=== PATIENT | female | born 1970 | race Caucasian/White ===

== ENCOUNTER 2018-02-24 09:20 | Day surgery (SDC) | payer OTHER ==
[~2018-02-24 09:20] MED LIST: CEFAZOLIN/SWI 2gm 2 GM/20 ML SYR IV SCH
--- OUTSIDE RECORDS SUMMARY | 2018-02-24 09:28 | XMS REPORT | Continuity of Care Document ---
:1970 Author Organization Interface Problems Problem Status Onset Classification Date Comments Source Date Reported Obesity Active Problem 09/13/2016 [facility] Medications Medication Details Route Status Patient Ordering Order Source Instructions Provider Date Allergies, Adverse Reactions, Alerts Substance Category Reaction Severity Reaction Status Date Comments Source type Reported NKDA Assertion Drug Active [facility] allergy [place] Immunizations Immunization Date Given Site Status Last Updated Comments Source Results Order Name Results Value Reference Date Interpretation Comments Source Range Spine Spine EXAM: XR CERVICAL SPINE 2 VIEWS 09/10 - [facility] OP[facility] cervical 2 cervical /2016 - [place] or 3 view 2 or 3 DX view DX DATE: 09/10/2016 12:25 PM CHART CLERK Read by: Aleksander Lee MD Dictated Date/time: 09/10/16 13:26 Electronically Signed by: Aleksander Lee MD 09/10/16 13:28 FINAL REPORT INDICATION: M47.12 Other spondylosis with myelopathy, cervical region COMPARISON: None TECHNIQUE: AP and lateral radiographs of the cervical spine show from the skull base through T1. DISCUSSION: Reversal of normal cervical lordosis with 10 degrees of focal kyphosis at C5-C6. Vertebral body heights are maintained. There is mild C5-C6 and moderate C6-C7 disc height loss. Large anterio r and small to moderate posterior vertebral body osteophytes at C5-C6 and C6-C7. Laminotomies have been performed on the right at C5, C6, and C7. The lateral mass screw at C5 is incompletely seated within the bone. IMPRESSION: 1. Laminotomies on the right at C5-C7. The C5 lateral mass screws incompletely seated within the bone. 2. Moderate degenerative disc disease at C5-C7 with 10 degrees focal kyphosis at C5-C6. Vital Signs Vital Sign Value Date Comments Source Encounters Location Location Encounter Encounter Reason Attending ADM DC Status Source Details Type Number For Provider Date Date Visit Outpatient [id number] [facility] 08/20 [facility] [place] Outpatient [id number] [facility] 09/10 [facility] [id number] 09/10 09/11 [facility]2016 [facility] [id number] [facility] 10/08 [facility] [place] [facility] Outpatient [id number] [facility] 12/03 [facility] [place] Out[place] [id number] [facility] 03/08 [facility] [place] Procedures Procedure Code Date Perfomer Comments Source Cervical [id number] 08/04/2016 [facility] laminoplasty with [place] decompression of spinal cord Tubal [id number] 2001 OP[facility] ligation<sup>1</sup [place] >
[2018-02-24] MEDS ORDERED: MIDAZOLAM HCL 2 MG/2 ML INJ ONE ×2 (09:32→09:34)
[2018-02-24] MEDS ORDERED: LIDOCAINE 2% MPF 5 ML VIAL ONE (09:34)
[2018-02-24] MEDS ORDERED: PROPOFOL 200 MG/20 ML VIAL IV ONE (09:34)
[2018-02-24] MEDS ORDERED: FENTANYL CITR 100 MCG/2 ML ONE (09:34)
[2018-02-24] MEDS ORDERED: ONDANSETRON HCL 40 MG/20 ML VIAL ONE (09:34)
[2018-02-24] MEDS ORDERED: Ringers Lactate 1,000 ML IV ONE (09:37)
[2018-02-24] MEDS ORDERED: KETOROLAC 30 MG/ML INJ ONE (10:32)
[2018-02-24] MEDS: MEPERIDINE HCL 50 MG/ML AMP ONE ×4 (10:46→11:15)
[2018-02-24] MEDS: MIDAZOLAM HCL 2 MG/2 ML INJ ONE ×2 (11:35→11:55)
[2018-02-24] MEDS ORDERED: MEPERIDINE HCL 25 MG/0.5 ML ONE ×2 (11:37→11:51)
[2018-02-24] MEDS ORDERED: HYDROCODONE/APAP 10/325 TAB ONE (11:52)
--- NOTE | 2018-02-24 20:43 | OP ---
Date of Procedure: 02/24/2018 Surgeon: Avani Smith MD Preoperative Diagnoses: Heavy menstrual bleeding (AUB-O). Postoperative Diagnoses: Heavy menstrual bleeding (AUB-O). Procedures Performed: Hysteroscopy, endometrial ablation with HTA. Anesthesia: General with LMA. Complications: None. Specimens: None. Drains: None. Condition: The patient is stable. Findings: Endometrial cavity was anteflexed, empty, and the ablation effect was excellent. Description Of Procedure: After informed consent was verified, patient was taken back to the OR, 2 g of Ancef were given. After general anesthesia was given, she was placed in a dorsal lithotomy posit ion using Mickey stirrups. Exam performed. Uterus anteflexed and slightly enlarged. Speculum placed to expose the cervix. Prep with Betadine x3. Anterior lip grasped with 2 Allis clamps, dilated to 12-Italian. Then primed HTA sheath with a diagnostic scope were introduced through the cervical canal , traversed through it into the uterine cavity under direct vision, placed in the mid cavity. The en tire cavity was surveyed. No intracavitary lesions. Endometrium appeared to be thin, likely from he r Provera. After a cavity integrity test was done, an anterior Allis clamp was hooked onto the HTA s yas, posterior fornix packed with 2 Ray-Tecs, and ablation cycle started. The heating cycle, 10 mi nute ablation cycle, and 1.5 minute cooling cycle overall, conducted without any problems or interrup tions. After the entire procedure was done, the scope was removed and diagnostic hysteroscopy was pe rformed with the same sheath to evacuate the ablation contents. There was an excellent ablation effe ct. The Ray-Tecs were removed and all instruments were removed, after the scope was removed. The pa tient instrument, needle, and sponge counts were correct at the end of the case. The patient tolerat ed the procedure well. She will follow up with me in 3 weeks. She was taken to the PACU in stable c ondition. BRIANNE/JOSE Voice ID: [id number] Report ID: [id number]
== END 2018-02-24 13:00 | disposition home or self-care (01) ==
LOC: OR 09:20
PROVIDERS: ATTEND Obstetrics & Gynecology
PROC: 0U5B8ZZ Destruction of Endometrium, Via Natural or Artificial Opening Endoscopic (ICD-10-PCS; principal; 2018-02-24 10:30)
DX: N92.0 Excessive and frequent menstruation with regular cycle (principal); F17.210 Nicotine dependence, cigarettes, uncomplicated; I10 Essential (primary) hypertension; N95.1 Menopausal and female climacteric states
CPT/HCPCS: 81025; J0690; J2175; J2250; J2405; J3010

== ENCOUNTER 2018-06-09 10:19 | Day surgery (SDC) | payer OTHER ==
[2018-06-06 14:53] LABS: Absolute Monocytes 0.6 K/uL (0.1-1.3); Absolute Neutrophil 5.2 K/uL (1.8-8.0); Basophils % 0.6 % (0-1.3); Eosinophils % 2.2 % (0-4.4); Hematocrit 43.2 % (36.0-45.0); Lymphocytes % 25.1 % (15.3-44.8); MCH 31.6 pg (27.0-35.0); MCV 92.2 fL (80-100); Monocytes % 7.5 % (3.3-12.3); RBC Red Blood Cell Count 4.68 M/uL (3.86-4.86)
[2018-06-06 17:09] LABS: Urine Appearance CLEAR; Urine Bilirubin NEGATIVE (NEG); Urine Blood NEGATIVE (NEG); Urine Color YELLOW; Urine Glucose TRACE (NEG); Urine Protein NEGATIVE (NEG); Urine Specific Gravity 1.015 (1.005-1.030); Urine Urobilinogen 0.2 mg/dL (0.2-1.0)
[2018-06-06 17:10] LABS: Urine Microscopic Reflex NO UMIC
--- OUTSIDE RECORDS SUMMARY | 2018-06-09 10:29 | XMS REPORT | Continuity of Care Document ---
:1970 Author Organization Interface Problems Problem Status Onset Classification Date Comments Source Date Reported Obesity Active Problem 09/13/2016 [facility] Medications Medication Details Route Status Patient Ordering Order Source Instructions Provider Date Allergies, Adverse Reactions, Alerts Substance Category Reaction Severity Reaction Status Date Comments Source type Reported Immunizations Immunization Date Given Site Status Last Updated Comments Source Results Order Name Results Value Reference Date Interpretation Comments Source Range Spine Spine EXAM: XR CERVICAL SPINE 2 VIEWS 09/10 - [facility] OPID cervical 2 cervical /2016 - [place] or 3 view 2 or 3 DX view DX DATE: 09/10/2016 12:25 PM IMAGE 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 Read by: Aleksander Lee MD Dictated Date/time: [...] Number For Provider Date Date Visit Outpatient [id number] [facility] 08/20 [facility] [place] Outpatient [id number] [facility] 09/10 [facility] Outpt Diag [id number] [facility] 09/10 09/11 OPID Outpatient Services [facility] /2016 [facility] Outpatient [id number] [facility] 10/08 [facility] [place] Outpatient [id number] [facility] 12/03 [facility] [place] Outpatient [id number] [facility] 03/08 [facility] Outpatient [id number] [facility] 08/02 [facility] Procedures Procedure Code Date Perfomer Comments Source Cervical [id number] 08/04/2016 OPID laminoplasty with [place] decompression of spinal cord Tubal [id number] 2001 OPID ligation<sup>1</sup [place] >
[2018-06-09] MEDS ORDERED: Ringers Lactate 1,000 ML IV ONE ×2 (10:41→12:47)
[2018-06-09] MEDS ORDERED: CEFAZOLIN/SWI 1gm 1 GM/10 ML SYR ONE (10:41)
[2018-06-09] MEDS ORDERED: SCOPOLAMINE HYDROBROMIDE PATCH TD ONE (11:02)
[2018-06-09] MEDS ORDERED: MIDAZOLAM HCL 2 MG/2 ML INJ ONE (11:35)
[2018-06-09] MEDS ORDERED: PROPOFOL 200 MG/20 ML VIAL IV ONE (11:36)
[2018-06-09] MEDS ORDERED: ROCURONIUM 50 MG/5 ML VIAL IV ONE ×2 (11:36→12:48)
[2018-06-09] MEDS ORDERED: DEXAMETHASONE 10 MG/ML VIAL ONE (11:37)
[2018-06-09] MEDS ORDERED: GLYCOPYRROLATE 0.2 MG/ML SYR ONE (11:37)
[2018-06-09] MEDS ORDERED: FENTANYL CITR 250 MCG/5 ML ONE (11:38)
[2018-06-09] MEDS ORDERED: NEOSTIGMINE 1 MG/ML -5 ML SYRINGE ONE (11:38)
[2018-06-09] MEDS ORDERED: LIDOCAINE 2% MPF 5 ML VIAL ONE (11:38)
[2018-06-09] MEDS ORDERED: ONDANSETRON HCL 40 MG/20 ML VIAL ONE ×2 (11:38→14:55)
[2018-06-09] MEDS: CEFAZOLIN/SWI 2gm 2 GM/20 ML SYR IV SCH ×2 (11:49→12:02)
[2018-06-09] MEDS ORDERED: NA CHLORIDE 0.9% 1,000 ML ONE ×2 (11:59→16:46)
[2018-06-09] MEDS ORDERED: EPHEDRINE SULF 50 MG/10 ML SYR ONE (12:29)
[2018-06-09] MEDS ORDERED: LABETALOL 20 MG/4ML SYRINGE IV ONE (13:22)
[2018-06-09] MEDS ORDERED: FENTANYL CITR 100 MCG/2 ML ONE (13:22)
[2018-06-09] MEDS ORDERED: KETOROLAC 30 MG/ML INJ ONE (13:51)
[2018-06-09] MEDS ORDERED: MORPHINE 10 MG/ML VIAL ONE (13:51)
[2018-06-09] MEDS ORDERED: MEPERIDINE HCL 25 MG/0.5 ML ONE (15:14)
[2018-06-09] MEDS: MEPERIDINE HCL 50 MG/ML AMP ONE ×2 (15:18→15:26)
[2018-06-09] MEDS ORDERED: HYDROCODONE/APAP 5/325 MG TAB ONE (18:08)
--- NOTE | 2018-06-10 08:16 | OP ---
Date of Procedure: 06/09/2018 Surgeon: Avani Smith MD Dry Folder Cloth: Yamilka Villafana. Preoperative Diagnoses: Menorrhagia, failed ablation. Postoperative Diagnoses: Menorrhagia, failed ablation, and omental and tubal adhesions to the sidewall . Procedures Performed: Total laparoscopic hysterectomy, bilateral salpingectomy, lysis of adhesions, cystoscopy. Anesthesia: General endotracheal. Estimated Blood Loss: 50. Specimens: Uterus, bilateral tubes. Complications: No complications. Drains: No none. Condition: The patient's condition is stable. Indications: The patient is a 47-year-old with heavy menstrual periods. She has had increasing heav y periods, 47 perimenopausal, so initially she had an endometrial biopsy that was without any endomet rial atypia or malignancy. After discussing about all the conservative treatment options including M steffi, ablation and Depo, she opted to have an ablation. After endometrial ablation was done, bleedi ng remained still uncontrolled, prolonged periods, without any changes. The patient wanted to procee d with definitive treatment. We discussed about the options of Depo and progesterone treatment. She has had progesterone in the past few weeks; however, she wants to have a hysterectomy thi s is a definitive treatment. Her FSH level was only 4.1, so plan was to proceed with hyst erectomy. Ovarian preservation was discussed since there was no pathology noted and no chronic pelvi c pain . We also discussed about tranexamic acid and she declined this contrain dicated . Description Of Procedure: After informed consent was verified, she was taken back to the OR. A 2 g of Ancef was given. She was placed in a supine fashion. General anesthesia was given. She was plac ed in a dorsal lithotomy position. Pelvic exam was performed. Uterus was found to be anteflexed wit hout adnexal masses, mobile, nontender. Abdomen, vulva, vagina, and perineum were prepped and draped in a sterile fashion. Dubon was placed to drain the bladder and attached LR bag for retr ograde filling, and this was left open to drain on the floor. A large VCare manipulator was introduc ed into the uterus without any problems and fixed in place. This area was then draped. A 1 cm infra umbilical incision was made with a scalpel. The fascia was exposed, incised, and tagged on both side s with 0 Vicryl sutures and peritoneum entered bluntly. S retractors placed. Karl introduced. Si te of entry was checked. There were omental adhesions in the pelvic cavity to the area of the left p roximal and distal tubes, to the large bowel, in the cul-de-sac, and left lateral wall. There were o varian adhesions to the lateral claudio, especially on the right ovary. Tubes were adherent to the bro ad ligament and to the large bowel. The patient was placed in Trendelenburg position. A 5 mm left lower quadrant and 10 mm suprapubic po rts were placed under direct vision and then a right lower quadrant incision was made for retraction of the bowel. Omentum was released first from all the underlying adhesions. There were taken down either sharply w ith scissors or with the bipolar cautery with the LigaSure and cutting. The omental adhesions were f geno up from the bowel as well as the left adnexa. Once this was reduced back in the upper abdominal cavity, the adhesions of the bowel were taken down on the left lower quadrant at the level of the pe lvic brim. These were sharply taken down. Able to visualize the tube. There was a distinct part of the tube that was adhered to the omentum and the epiploica that appeared to be from her tubal ligati on. However, this tube was completely and attached mostly to the omentum. This was picke d up and dissected out and cut and removed for specimen. Then, there was increased vascularity in th is area, and this was also resected. We went onto the pelvic washings. Once these were done and retrieved, then the anterior peritoneum w as surveyed. We went on to have a 5 mm LigaSure curved tip, and this was used to take down the left utero-ovarian ligament, mesosalpinx, round ligament, broad ligament opened up anteriorly to raise the bladder flap all the way to the opposite side and posteriorly the peritoneum taken down to the left uterosacral ligament. The vessels were skeletonized after taking down the broad ligament with the bi polar. On the opposite side, similar dissection was performed to take down the utero-ovarian, mesosa lpinx, round ligament, and the broad ligament taken down to connect the flap on the opposite side and the posterior broad ligament all the way to the right uterosacral was taken down. Then, the broad l igament was dissected carefully with push-spread technique, and using the bipolar LigaSure to isolate the vessels, the bladder flap was cleaned up by using the monopolar to cauterize the loose areolar t issue in front of the anterior vaginal wall. Once the vesicovaginal space was entered, the bladder w as retracted and dissected inferiorly without any problems and without any bleeding. Then, the vesse ls were isolated on the medial aspect with the help of the monopolar hook blade creating a window and then the bipolar LigaSure was taken after the bipolar basket tip was used to cauterize the vessels. Uterine artery and vein and the descending branches were all taken down. The cardinal ligaments wer e also cauterized and cut the uterine vessels, cardinal ligaments were all taken down. Ci rcumferential colpotomy was performed with the help of a monopolar hook blade, and the specimen was p ulled out through the vagina. Thorough irrigation and suction were performed. There was small amoun t of bleeding at the right end of the cuff, and this was cauterized with the help of the basket tip b ipolar. The tubes were taken down from both sides without any problems. The ovaries appeared to be completel y unremarkable and kept attached to the lateral wall with good blood supply. They were unremarkable. Thorough irrigation and suction were done in the pelvic cavity and the 2-0 V-Loc was used to close th e vaginal cuff starting in the posterior aspect of the right lateral margin taking the 5 stitches thr ough the vaginal cuff and then coming back with a fixed stitch towards the medial aspect closing the left . Then, 2-0 PDS was used to close the peritoneum on top of the cuff to prevent the ex posure of the bowel to the V-Loc. Then, Surgicel was placed on the right end of the vaginal cuff jus t in case for better hemostasis. There was excellent hemostasis at the end. After all the trocars w ere removed under direct vision, gas was desufflated. Fascia at the umbilicus was closed with the he lp of 0 Vicryl in a [id number] fashion. All skin incisions were closed with the help of simple 4-0 Vicryl interrupted sutures. Dubon removed. Vaginal occlusion bulb was removed. Cystoscopy was performed with a 17-Spanish sheath, 30-degree lens and normal saline for distention. Both ureteric or ifices were well visualized, and there were normal jets of urine. No evidence of any trauma or forei gn body to the bladder. The bladder was drained. Vagina was cleaned up. All instruments were remov ed. Instrument, needle, and sponge counts were done and were correct at the end of the case. She wa s recovered from anesthesia in the OR and taken to PACU in stable condition. She will follow up with me in 1 week. PRINCE Voice ID: [id number] Report ID: [id number]
== END 2018-06-09 18:56 | disposition home or self-care (01) ==
LOC: OR 10:19
PROVIDERS: ATTEND Obstetrics & Gynecology
PROC: 0UT74ZZ Resection of Bilateral Fallopian Tubes, Percutaneous Endoscopic Approach (ICD-10-PCS; 2018-06-09)
PROC: 0UT94ZZ Resection of Uterus, Percutaneous Endoscopic Approach (ICD-10-PCS; principal; 2018-06-09 11:30)
DX: N92.1 Excessive and frequent menstruation with irregular cycle (principal); K66.0 Peritoneal adhesions (postprocedural) (postinfection); N73.6 Female pelvic peritoneal adhesions (postinfective); N83.8 Other noninflammatory disorders of ovary, fallopian tube and broad ligament; I10 Essential (primary) hypertension; K21.9 Gastro-esophageal reflux disease without esophagitis; F17.210 Nicotine dependence, cigarettes, uncomplicated; G47.33 Obstructive sleep apnea (adult) (pediatric); E66.9 Obesity, unspecified; Z68.35 Body mass index [BMI] 35.0-35.9, adult; Z82.49 Family history of ischemic heart disease and other diseases of the circulatory system
CPT/HCPCS: 36415; 81003; 81025; 85025; 86850; 86900; 86901; 88307; J0690; J1100; J2175; J2250; J2405; J2710; J3010; J7030

== ENCOUNTER 2018-07-22 10:31 | Emergency (ER) | payer OTHER ==
--- OUTSIDE RECORDS SUMMARY | 2018-07-22 10:34 | XMS REPORT | Continuity of Care Document ---
[...] [facility] OPID cervical 2 cervical /2016 - [place] or 3 view 2 or 3 DX view DX DATE: 09/10/2016 12:25 PM RECORDS MANAGEMENT CLERK Read by: Aleksander Lee MD Dictated [...] Number For Provider Date Date Visit Outpatient [id number] [facility] 08/20 [facility] [place] Out[place] [id number] [facility] 09/10 [facility] Outpt Diag [id number] [facility] 09/10 09/11 OP[facility] Outpatient Services [facility]2016 [facility] [id number] [facility] 10/08 [facility] [place] Out[place] [id number] [place] 12/03 [facility] [place] Out[place] [id number] [facility] 03/08 [facility] Outpatient [id number] [place] 08/02 [facility] Procedures Procedure Code Date Perfomer Comments Source Cervical [id number] 08/04/2016 OPID laminoplasty with [place] decompression of spinal cord Tubal [id number] 2001 OPID ligation<sup>1</sup [place] >
[2018-07-22] MEDS ORDERED: NA CHLORIDE 0.9% 1,000 ML ONE (11:47)
[2018-07-22 12:02] LABS: Absolute Monocytes 0.7 K/uL (0.1-1.3); Absolute Neutrophil 7.7 K/uL (1.8-8.0); Basophils % 0.5 % (0-1.3); Eosinophils % 2.3 % (0-4.4); Hematocrit 45.4 % (36.0-45.0); Lymphocytes % 18.3 % (15.3-44.8); MCH 32.1 pg (27.0-35.0); MCV 91.2 fL (80-100); MPV 7.8 fL (7.6-11.3); Monocytes % 6.2 % (3.3-12.3); RBC Red Blood Cell Count 4.97 M/uL (3.86-4.86)
[2018-07-22 12:09] LABS: Urine Blood TRACE (NEG); Urine Glucose NEGATIVE (NEG); Urine Protein NEGATIVE (NEG); Urine Specific Gravity 1.015 (1.005-1.030)
[2018-07-22 12:25] LABS: ALT/SGPT 51 U/L (12-78); AST/SGOT 22 U/L (15-37); Albumin 3.6 g/dL (3.4-5.0); Alkaline Phosphatase 175 U/L (45-117); BUN Blood Urea Nitrogen 16 mg/dL (7-18); Bicarbonate 26 mmol/L (21-32); Bilirubin Direct < 0.1 mg/dL (0-0.2); Bilirubin Total 0.2 mg/dL (0.2-1.0); Glucose Level 136 mg/dL (74-106); Lipase 190 U/L (73-393); Potassium 4.1 mmol/L (3.5-5.1); Protein, Total 7.6 g/dL (6.4-8.2); Sodium Level 137 mmol/L (136-145); Troponin (Emerg Dept Use Only) < 0.02 ng/mL (0.0-0.045)
--- NOTE | 2018-07-22 13:38 | RAD REPORT ---
EXAM DESCRIPTION: CTAbdomen Pelvis W Contrast - 07/22/2018 1:30 pm CLINICAL HISTORY: Abdominal pain. ABD PAIN COMPARISON: No comparisons TECHNIQUE: Biphasic CT imaging of the abdomen and pelvis was performed with 100 ml non-ionic IV cont rast. All CT scans are performed using dose optimization technique as appropriate and may include automated exposure control or mA/KV adjustment according to patient size. FINDINGS: The lung bases are clear.Small hiatal hernia is present. The liver, spleen, adrenal glands and kidneys are within normal limits. Mild peripancreatic fat stran ding is seen greatest in the region of the pancreatic tail. No portal vein thrombosis, necrosis or ps eudocyst identified. No bowel obstruction, free air, free fluid or abscess. Small umbilical hernia is present. The appendi x is normal. No evidence of significant lymphadenopathy. No suspicious bony findings. IMPRESSION: Mild acute pancreatitis without complication evident.
--- NOTE | 2018-07-22 14:09 | RAD REPORT ---
EXAM DESCRIPTION: US - Abdomen Exam Limited - 07/22/2018 1:42 pm CLINICAL HISTORY: LUQ;Abd pain COMPARISON: No comparisons FINDINGS: The gallbladder demonstrates partial contraction without evidence of stones. No pericholec ystic fluid or gallbladder wall thickening. The common bile duct is normal measuring 4-5 mm. The liver demonstrates no findings of intrahepatic biliary dilatation. IMPRESSION: Partially contracted gallbladder without stones suspected.
--- NOTE | 2018-07-22 15:11 | EKG ---
Test Date: 2018-07-22 Test Time: 11:52:04 Receiver Setter: GASTON MEASUREMENT RESULTS: Intervals: Rate: 106 VA: 166 QRSD: 86 QT: 340 QTc: 451 [place]: P: 49 VA: 166 QRS: 21 T: 64 INTERPRETIVE STATEMENTS: Sinus tachycardia Otherwise normal ECG Compared to ECG 08/01/2010 17:17:40 No significant changes Electronically Signed On 07-22-18 15:10:27 MANAGER FRAUD by Refugio Downs
--- NOTE | 2018-07-22 15:50 | EDPHYS ---
Physician Documentation [facility] Name: Mariza Shepherd Age: 47 yrs Sex: Female : 1970 Arrival Date: 07/22/2018 Time: 10:32 Bed 13 Private MD: Manuel Horne E ED Physician Jason Wilson HPI: 07/22 18:04 This 47 yrs old Female presents to ER via Ambulatory with complaints of kdr Abdominal Pain, Back Pain. 18:04 The patient presents with pain that is acute, with no known mechanism of injury. kdr 18:07 The patient presents with abdominal pain in the epigastric area, in the upper abdomen. kdr Onset: The symptoms/episode began/occurred gradually, 5 day(s) ago. The symptoms radiate to mid back area and right mid back. Associated signs and symptoms: Pertinent positives: nausea and vomiting, Pertinent negatives: blood in stools, chest pain, constipation, diarrhea, dysuria, fever, headache, hematuria, palpitations, shortness of breath, vaginal discharge, vomiting, vomiting blood. The symptoms are described as achy, constant, crampy, dull, vague, waxing/waning. Modifying factors: The symptoms are alleviated by nothing, the symptoms are aggravated by food. Severity of pain: At its worst the pain was mild moderate in the emergency department the pain has improved moderately. The patient has experienced similar episodes in the past, a few times, Has had pancreatitis in the past. The patient has not recently seen a physician. 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 - Social history:: Smoking status: Patient/guardian denies using tobacco. - Ebola Screening: : Patient negative for fever greater than or equal to 101.5 degrees Fahrenheit, and additional compatible Ebola Virus Disease symptoms Patient denies exposure to infectious person Patient denies travel to an Ebola-affected area in the 21 days before illness onset No symptoms or risks identified at this time. ROS: 18:07 Constitutional: Negative for fever, chills, and weight loss, Eyes: Negative for injury, kdr pain, redness, and discharge, ENT: Negative for injury, pain, and discharge, Neck: Negative for injury, pain, and swelling, Cardiovascular: Negative for chest pain, palpitations, and edema, Respiratory: Negative for shortness of breath, cough, wheezing, and pleuritic chest pain, Back: Negative for injury and pain, : Negative for injury, bleeding, discharge, and swelling, MS/Extremity: Negative for injury and deformity, Skin: Negative for injury, rash, and discoloration, Neuro: Negative for headache, weakness, numbness, tingling, and seizure activity. Psych: Negative for depression, anxiety, suicide ideation, homicidal ideation, and hallucinations, Allergy/Immunology: Negative for hives, rash, and allergies, Endocrine: Negative for neck swelling, polydipsia, polyuria, polyphagia, and marked weight changes, Hematologic/Lymphatic: Negative for swollen nodes, abnormal bleeding, and unusual bruising. 18:07 Abdomen/GI: Positive for abdominal pain, nausea and vomiting, of the right upper quadrant and left upper quadrant. Exam: 18:07 Constitutional: This is a well developed, well nourished patient who is awake, alert, kdr and in no acute distress. Head/Face: Normocephalic, atraumatic. Eyes: Pupils equal round and reactive to light, extra-ocular motions intact. Lids and lashes normal. Conjunctiva and sclera are non-icteric and not injected. Cornea within normal limits. Periorbital areas with no swelling, redness, or edema. Neck: Trachea midline, no thyromegaly or masses palpated, and no cervical lymphadenopathy. Supple, full range of motion without nuchal rigidity, or vertebral point tenderness. No Meningismus. Chest/axilla: Normal chest wall appearance and motion. Nontender with no deformity. No lesions are appreciated. Cardiovascular: Regular rate and rhythm with a normal S1 and S2. No gallops, murmurs, or rubs. Normal PMI, no JVD. No pulse deficits. Respiratory: Lungs have equal breath sounds bilaterally, clear to auscultation and percussion. No rales, rhonchi or wheezes noted. No increased work of breathing, no retractions or nasal flaring. Back: No spinal tenderness. No costovertebral tenderness. Full range of motion. Skin: Warm, dry with normal turgor. Normal color with no rashes, no lesions, and no evidence of cellulitis. MS/ Extremity: Pulses equal, no cyanosis. Neurovascular intact. Full, normal range of motion. Neuro: Awake and alert, GCS 15, oriented to person, place, time, and situation. Cranial nerves II-XII grossly intact. Motor strength 5/5 in all extremities. Sensory grossly intact. Cerebellar exam normal. Normal gait. Psych: Awake, alert, with orientation to person, place and time. Behavior, mood, and affect are within normal limits. 18:07 Abdomen/GI: Inspection: obese Bowel sounds: active, diminished, in all quadrants, Palpation: soft, mild abdominal tenderness, in the epigastric area, right upper quadrant and left upper quadrant, mass, is not appreciated, rebound tenderness, is not appreciated. Vital Signs: 11:13 BP 144 / 81; Pulse 112; Resp 16; Temp 98.5; Pulse Ox 100% on R/A; Pain 4/10; hb 16:49 BP 132 / 72; Pulse 87; Resp 17; Temp 98.5; Pulse Ox 99% on R/A; Pain 3/10; iw MDM: 15:48 Patient medically screened. kdr 18:07 Data reviewed: vital signs, nurses notes, lab test result(s), radiologic studies. kdr Counseling: I had a detailed discussion with the patient and/or guardian regarding: the historical points, exam findings, and any diagnostic results supporting the discharge/admit diagnosis, lab results, radiology results, the need for outpatient follow up, to return to the emergency department if symptoms worsen or persist or if there are any questions or concerns that arise at home. 07/22 11:33 Order name: Basic Metabolic Panel; Complete Time: 12:28 kdr 07/22 11:33 Order name: CBC with Diff; Complete Time: 12:28 kdr 07/22 11:33 Order name: Creatinine for Radiology; Complete Time: 12:28 kdr 07/22 11:33 Order name: Hepatic Function; Complete Time: 12:28 kdr 07/22 11:33 Order name: Lipase; Complete Time: 12:28 kdr 07/22 11:33 Order name: Troponin (emerg Dept Use Only); Complete Time: 12:28 kdr 07/22 11:33 Order name: IV Saline Lock; Complete Time: 11:54 kdr 07/22 11:33 Order name: Flu; Complete Time: 12:59 kdr 07/22 11:34 Order name: CT Abd/Pelvis - W/Contrast; Complete Time: 14:12 kdr 07/22 12:04 Order name: Urine Dipstick--Ancillary (enter results); Complete Time: 12:28 bd 07/22 12:04 Order name: Urine --Ancillary (enter results); Complete Time: 12:28 bd 07/22 13:02 Order name: US Abdomen Limited; Complete Time: 15:04 kdr 07/22 14:09 Order name: EKG Electrocardiogram EDIL 07/22 11:33 Order name: Labs collected and sent; Complete Time: 11:54 kdr 07/22 11:33 Order name: EKG - Nurse/Tech; Complete Time: 11:54 kdr 07/22 15:50 Order name: PO challenge; Complete Time: 16:06 kdr Administered Medications: 11:54 Drug: NS 0.9% 1000 ml Route: IV; Rate: 1 bolus; Site: left antecubital; Disposition: 07/22/18 15:48 Discharged to Home. Impression: Acute pancreatitis, unspecified, Idiopathic acute pancreatitis, Abdominal and pelvic pain. - Condition is Stable. - Discharge Instructions: Acute Pancreatitis, [id number], Abdominal Pain, Adult, [id number]. - Prescriptions for Bentyl 20 mg Oral Tablet - take 1 tablet by ORAL route every 6 hours As needed; 20 tablet. Pepcid 20 mg Oral Tablet - take 1 tablet by ORAL route every 12 hours for 5 days; 10 tablet. Tylenol- Codeine #3 300-30 mg Oral Tablet - take 2 tablets by ORAL route every 6 hours As needed; 12 tablet. Tramadol 50 mg Oral Tablet - take 1 tablet by ORAL route every 8 hours as needed; 12 tablet. - Work release form, Medication Reconciliation Form, Thank You Letter, Prescription Opioid Use form. - Follow up: Manuel Horne MD; When: 2 - 3 days; Reason: If symptoms return, Further diagnostic work-up, Recheck today's complaints, Continuance of care, Re-evaluation by your physician. - Problem is new. - Symptoms have improved. Signatures: Dispatcher [employer] EDIL Yuridia Josue Steven, RN RN Jason Wilson MD MD [facility] Corrections: (The following items were deleted from the chart) 16:53 15:48 07/22/2018 15:48 Discharged to Home. Impression: Acute pancreatitis, unspecified; bd Idiopathic acute pancreatitis; Abdominal and pelvic pain. Condition is Stable. Forms are Medication Reconciliation Form, Thank You Letter, Antibiotic Education, Prescription Opioid Use. Follow up: Manuel Horne; When: 2 - 3 days; Reason: If symptoms return, Further diagnostic work-up, Recheck today's complaints, Continuance of care, Re-evaluation by your physician. Problem is new. Symptoms have improved. kdr
--- NOTE | 2018-07-22 15:50 | ER ---
Nurse's Notes [facility] Name: Mariza Shepherd Age: 47 yrs Sex: Female : 1970 Arrival Date: 07/22/2018 Time: 10:32 Bed 13 Private MD: Manuel Horne E Diagnosis: Acute pancreatitis, unspecified;Idiopathic acute pancreatitis;Abdominal and pelvic pain Presentation: 07/22 11:13 Presenting complaint: Upper abdominal pain that radiates to mid back and nausea x 5 hb days. Transition of care: patient was not received from another setting of care. Onset of symptoms was July 22, 2018. Risk Assessment: Do you want to hurt yourself or someone else? Patient reports no desire to harm self or others. Care prior to arrival: None. 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 - Social history:: Smoking status: Patient/guardian denies using tobacco. - Ebola Screening: : Patient negative for fever greater than or equal to 101.5 degrees Fahrenheit, and additional compatible Ebola Virus Disease symptoms Patient denies exposure to infectious person Patient denies travel to an Ebola-affected area in the 21 days before illness onset No symptoms or risks identified at this time. Screenin:42 Abuse screen: Denies threats or abuse. Denies injuries from another. Nutritional sg screening: No deficits noted. Tuberculosis screening: No symptoms or risk factors identified. Never had TB. Fall Risk None identified. Assessment: 12:10 General: Appears in no apparent distress. comfortable, well groomed, well developed, sg well nourished, Behavior is calm, cooperative, appropriate for age. Pain: Complains of pain in back and abdomen Quality of pain is described as aching. Neuro: No deficits noted. Cardiovascular: Capillary refill is brisk in bilateral fingers Patient's skin is warm and dry. Chest pain is denied. Respiratory: Airway is patent Respiratory effort is even, unlabored, Respiratory pattern is regular, symmetrical. GI: Abdomen is round non-distended, Bowel sounds present X 4 quads. Abd is soft and non tender X 4 quads. : No signs and/or symptoms were reported regarding the genitourinary system. EENT: No signs and/or symptoms were reported regarding the EENT system. Derm: Skin is pink, warm \T\ dry. Musculoskeletal: Circulation, motion, and sensation intact. Range of motion: intact in all extremities, Swelling absent. Vital Signs: 11:13 BP 144 / 81; Pulse 112; Resp 16; Temp 98.5; Pulse Ox 100% on R/A; Pain 4/10; hb 16:49 BP 132 / 72; Pulse 87; Resp 17; Temp 98.5; Pulse Ox 99% on R/A; Pain 3/10; iw ED Course: 10:32 Patient arrived in ED. mr 10:33 Manuel Horne MD is Private Physician. mr 10:45 Jason Wilson MD is Attending Physician. kdr 11:13 Triage completed. hb 11:15 Urine collected: clean catch specimen, clear, christal colored, Amount Voided: 80mL. jp3 11:15 Warm blanket given. Pillow given. jp3 11:25 Osvaldo Rodgers, RN is Primary Nurse. sg 11:30 Arm band placed on. sg 11:38 Bed in low position. Call light in reach. Side rails up X 1. Side rails up X2. jp3 11:55 Initial lab(s) drawn, by ok, sent to lab. Inserted saline lock: 20 gauge in left sg antecubital area, using aseptic technique. Blood collected. 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 reviewed by Jason Wilson MD. dt2 12:10 Flu and/or RSV swab sent to lab. jp3 12:15 Flu Sent. jp3 13:[address] via wheelchair. jg6 13:30 CT Abd/Pelvis - W/Contrast In Process Unspecified. EDMS 13:42 US Abdomen Limited In Process Unspecified. EDMS 13:48 Ultrasound completed. Patient moved back from ultrasound. lc3 15:44 Manuel Horne MD is Referral Physician. kdr 16:06 Diet: Patient given water. Tolerated well. sg 16:45 No provider procedures requiring assistance completed. Patient did not have IV access sg during this emergency room visit. Administered Medications: 11:54 Drug: NS 0.9% 1000 ml Route: IV; Rate: 1 bolus; Site: left antecubital; sg Outcome: 15:48 Discharge ordered by MD. kdr 16:48 Discharged to home ambulatory, with family. iw 16:48 Condition: good 16:48 Discharge instructions given to patient, family, area forester, Instructed on discharge instructions, follow up and referral plans. no drinking with medication, no driving heavy equipment, medication usage, safety practices, Demonstrated understanding of instructions, follow-up care, medications, Prescriptions given X 4. 16:53 Patient left the ED. bd Signatures: Dispatcher [employer] EDMS Yuridia Josue Steven, YAHIR SINCLAIR sg Jason Wilson MD MD kdr Rivera, Mary mr Bessy Hatch RN RN iw Cunningham, Laulita lc3 Baxter, Heather, RN RN Franchesca Boo2 Pillo Valenzuela jp3 Concepción Portillo6
== END 2018-07-22 16:53 | disposition home or self-care (01) ==
LOC: ER 10:31
DX: K85.80 Other acute pancreatitis without necrosis or infection (principal)
CPT/HCPCS: 36415; 74177; 76705; 80048; 80076; 81003; 81025; 83690; 84484; 85025; 87804; 93005; 99284; J7030; Q9967

== ENCOUNTER 2020-06-13 12:23 | Emergency (ER) | payer OTHER ==
[2020-06-13] MEDS ORDERED: IBUPROFEN 400 MG TAB ONE (12:59)
--- OUTSIDE RECORDS SUMMARY | 2020-06-13 13:26 | XMS REPORT | Continuity of Care Document ---
:1970 Author Organization [facility] Care Team Providers Name Role Phone [facility] Unavailable Un available Problems Problem Status Onset Classification Date Comments Sourc e Date Reported Polyneuropathy Active 03/04/20 Problem 05/11/2019 Misc her (disorder) 17 Neuro Acute low back pain Active 02/06/20 Problem 05/11/2019 Mischer (disorder) 17 Neuro Cervical Active 02/06/20 Problem 05/11/2019 [facility] spondylosis with 17 Min[place] myelopathy (disorder) Essential Active 02/06/20 Problem 05/11/2019 [facility]ischer hypertension 17 Neuro (disorder) Paresthesia Active 02/06/20 Problem 05/11/2019 Mischer (finding) 17 Neuro Family history: Resolved Problem 05/11/2019 Mis roz Hypertension Neuro (context-dependent category) Gastroesophageal Resolved Problem 05/11/2019 Mi lorne reflux disease Neuro (disorder) Movement disorder Resolved Problem 05/11/2019 M ischer (disorder) Neuro Fibromyositis Resolved Problem 05/11/2019 Misch er (disorder) Neuro Obesity (disorder) Active Problem 05/11/2019 [facility] [place] Spinal stenosis in Resolved Problem 05/11/2019 Mischer cervical region Neur o (disorder) Medications Medication Details Route Status Patient Ordering Order Source Instructions Provider Date amitriptyline 50 = 1 tab, Active Mische r mg oral tablet PO, 019 Neuro Bedtime, # 30 tab, Refill(s) 6, Pharmacy: [facility] amitriptyline 50 50 mg = 1 No Longer Mis roz mg oral tablet tab, PO, Active 019 Neuro Bedtime, # 30 tab, 6 Refill(s), Pharmacy: [facility] Allergies, Adverse Reactions, Alerts Substance Category Reaction Severity Reaction Status Date Comments S ource type Reported codeine Assertion Drug Active Mische r allergy Neuro codeine Assertion Drug Active Mische r phosphate allergy Neuro Immunizations No Data Provided for This Section Results No Data Provided for This Section Pathology Reports No Data Provided for This Section Diagnostic Reports Report Value Date Source Spine cervical 2 or 3 EXAM: XR CERVICAL SPINE 2 VIEWS 09/10/2016 [facility] [place] view DX DATE: 09/10/2016 12:25 PM 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 DISCUSSION: Reversal of norm al cervical lordosis with 10 degrees of focal kyphosis at C5-C6. Vertebral body heights are maintained. There is mild C5-C6 and moderate C6-C7 disc height loss. Large anterio r and small to moderate post erior vertebral body osteophytes at C5-C6 and C6-C7. Laminotomies have been perfo rmed on the right at C5, C6, and C7. The lateral mass screw at C5 is incompletely seated within the bone. IMPRESSION: 1. Laminotomies on the right at C5-C7. The C5 lateral mass screws incompletely seated within the bone. 2. Moderate degenerative dis c disease at C5-C7 with 10 degrees focal kyphosis at C5-C6. Consultation Notes No Data Provided for This Section Discharge Summaries No Data Provided for This Section History and Physicals No Data Provided for This Section Vital Signs Vital Sign Value Date Comments Source BMI Calculated 35.95 08/02/2018 [facility] Weight 113.636 08/02/2018 [facility] Height 177.8 cm 08/02/2018 [facility] Heart Rate 101 08/02/2018 [facility] Respitory Rate 16 08/02/2018 [facility] Systolic (mm Hg) 96 08/02/2018 [facility] Minna ro Diastolic (mm Hg) 65 08/02/2018 [facility] Ne uro Encounters Location Location Encounter Encounter Reason Attending ADM MT Stat Source Details Type Number For Provider Date Date Visit Outpatient [id number] [place] 08/20 [facility] Outpatient [id number] [place] 09/10 [facility] Outpt Diag [id number] [place] 09/10 09/11 [facility] [place] [facility] Outpatient [id number] H[place] 10/08 [facility] [place] Outpatient [id number] [place] 12/03 [facility] [place] Outpatient [id number] MINDY 03/08 Active [facility] [place] Outpatient [id number] MINDY 08/02 Active [facility]NA Outpatient [id number] Mindy 08/02 08/03 [facility] [place] [facility]NA Phone [id number] 09/20 09/22 Misc her Neurology [facility] [place] Outpatient [id number] MINDY 05/09 Active [facility] [place] [facility] Ambulatory [id number] Mindy 05/09 05/09 [facility] [place] Procedures Procedure Code Date Perfomer Comments Source Cervical [id number] 08/04/2016 [facility] laminoplasty with Neuro,[facility] decompression of Mark spinal cord [id number] [id number] 2001 [facility]ischer ligation<sup>1</sup Neuro ,[facility] > [place] Assessment and Plan No Data Provided for This Section Plan of Care No Data Provided for This Section Social History Social History Date Source Social History TypeResponse 08/02/2018 [facility] Smoking Status Current every day smoker; Type: Cigarett es; Exposure to Tobacco Smoke Unable to obtain; Cigarette Smoking Last 365 Days Yes; Reg Smoking Cessation Counseling No entered on: 08/02/18 Social History TypeResponse 09/10/2016 [facility] Smoking Status Current every day smoker; Type: Cigarett es; Total pack years: 1; Previous treatment: None; Ready to change: No; Concerns about tobacco use in household: No; Lives with someone who smokes; Cigarette Smok ing Last 365 Days Yes; Reg Smoking Cessation Counseling Yes Family History No Data Provided for This Section Advance Directives No Data Provided for This Section Functional Status No Data Provided for This Section
--- NOTE | 2020-06-13 13:59 | RAD REPORT ---
EXAM DESCRIPTION: RAD - Knee Left 3 View - 06/13/2020 1:44 pm CLINICAL HISTORY: slip and fall COMPARISON: No comparisons FINDINGS: No fracture, dislocation or periosteal reaction.No joint effusion seen. No joint space milagro rowing. Spurring is present at the quadriceps attachment to the patella. IMPRESSION: No acute left knee bone or joint finding. Clinical concerns for internal derangement or occult bony injury could be further assessed with MR im aging.
--- NOTE | 2020-06-13 14:07 | EDPHYS ---
Physician Documentation [facility] Name: Mariza Alicea Age: 49 yrs Sex: Female : 1970 Arrival Date: 06/13/2020 Time: 12:24 Bed 20 Private MD: ED Physician Jason Wilson HPI: 06/13 12:50 This 49 yrs old Female presents to ER via Wheelchair with complaints of Fall, cp Knee Injury. 12:50 The patient presents with an injury. cp 12:50 The complaints affect the left knee. Context: resulted from the patient falling, the cp patient can fully bear weight, the patient is able to ambulate, with moderate difficulty, Patient not complaining of pain but reports left knee feels unstable since fall. Onset: The symptoms/episode began/occurred this morning. 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 - Social history:: Smoking status: Patient reports the use of cigarette tobacco products, smokes one pack cigarettes per day. ROS: 12:55 Constitutional: Negative for body aches, chills, fever, poor PO intake. cp 12:55 Eyes: Negative for injury, pain, redness, and discharge. cp 12:55 Cardiovascular: Negative for chest pain. 12:55 Respiratory: Negative for cough, shortness of breath. 12:55 Abdomen/GI: Negative for abdominal pain, vomiting, diarrhea, constipation. 12:55 MS/extremity: Positive for pain, of the left knee, Negative for decreased range of motion, deformity, paresthesias. 12:55 Neuro: Negative for altered mental status, headache, weakness. 12:55 All other systems are negative. Exam: 13:00 Constitutional: The patient appears in no acute distress, alert, awake, non-toxic, well cp developed, well nourished, obese. 13:00 Head/Face: Normocephalic, atraumatic. cp 13:00 Neck: ROM/movement: is normal, is supple, without pain, no range of motions limitations. 13:00 Chest/axilla: Inspection: normal. 13:00 Cardiovascular: Rate: normal. 13:00 Respiratory: the patient does not display signs of respiratory distress, Respirations: normal, no use of accessory muscles, no retractions, labored breathing, is not present. 13:00 Abdomen/GI: Inspection: abdomen appears normal. 13:00 Musculoskeletal/extremity: Extremities: grossly normal except: noted in the left knee: mild tenderness to palpation, There is no evidence of decreased ROM, deformity, swelling, ROM: full passive range of motion, in the left knee, Perfusion: the extremity is normally perfused throughout, Sensation intact. Vital Signs: 12:32 BP 132 / 78; Pulse 67; Resp 16; Temp 98.3; Pulse Ox 98% ; Weight 113.4 kg; Height 5 ft. sv 10 in. (177.80 cm); Pain 3/10; 12:45 BP 141 / 82; Pulse 93; Resp 16; Pulse Ox 100% ; ll2 13:51 BP 157 / 69; Pulse 81; Resp 16; Pulse Ox 100% on R/A; ll2 12:32 Body Mass Index 35.87 (113.40 kg, 177.80 cm) sv MDM: 12:42 Patient medically screened. cp 13:53 Test interpretation: by ED physician or midlevel provider: xrays of left hand negative cp for fracture. 14:05 Data reviewed: vital signs, nurses notes, radiologic studies, plain films. cp 14:05 Counseling: I had a detailed discussion with the patient and/or guardian regarding: the cp historical points, exam findings, and any diagnostic results supporting the discharge/admit diagnosis, radiology results, the need for outpatient follow up, a orthopedic surgeon, to return to the emergency department if symptoms worsen or persist or if there are any questions or concerns that arise at home. 06/13 12:43 Order name: XRAY Knee LEFT 3 view; Complete Time: 14:05 cp 06/13 14:05 Interpretation: Report reviewed. cp 06/13 14:05 Order name: Crutches; Complete Time: 14:33 cp 06/13 14:05 Order name: Knee Immobilizer; Complete Time: 14:33 cp Administered Medications: 12:47 Drug: Ibuprofen 800 mg Route: PO; ll2 14:09 Follow up: Response: No adverse reaction ss Disposition: 06/13/20 14:06 Discharged to Home. Impression: Pain in left knee. - Condition is Stable. - Discharge Instructions: Knee Immobilizer, Knee Pain. - Prescriptions for Naprosyn 500 mg Oral Tablet - take 1 tablet by ORAL route 2 times per day take with food; 20 tablet. - Work release form, Medication Reconciliation Form, Thank You Letter, Antibiotic Education, Prescription Opioid Use form. - Follow up: Carlos Hess MD; When: 2 - 3 days; Reason: Recheck today's complaints. - Problem is new. - Symptoms have improved. Addendum: 06/14/2020 15:52 Co-signature as Attending Physician, Jason Wilson MD I agree with the assessment and k dr plan of care. Signatures: Dispatcher [employer] EDErna Granger, RN RN Jason Wilson MD MD [facility] Terry Sadler PA PA cp Winsome Martinez, RN RN ll2 Tamar Goddard RN ss Corrections: (The following items were deleted from the chart) 06/13 14:34 14:06 06/13/2020 14:06 Discharged to Home. Impression: Pain in left knee. Condition is ll2 Stable. Forms are Medication Reconciliation Form, Thank You Letter, Antibiotic Education, Prescription Opioid Use. Follow up: Carlos Hess; When: 2 - 3 days; Reason: Recheck today's complaints. Problem is new. Symptoms have improved. cp
--- NOTE | 2020-06-13 14:07 | ER ---
Nurse's Notes [facility] Name: Mariza Alicea Age: 49 yrs Sex: Female : 1970 Arrival Date: 06/13/2020 Time: 12:24 Bed 20 Private MD: Diagnosis: Pain in left knee Presentation: 06/13 12:30 Chief complaint: Patient states: slipped and fell onto the concrete earlier this sv morning. c/o left knee pain. 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 Coronavirus screen: Client denies travel out of the [place] in the last 14 days. At this time, the client does not indicate any symptoms associated with coronavirus-19. Ebola Screen: No symptoms or risks identified at this time. Risk Assessment: Do you want to hurt yourself or someone else? Patient reports no desire to harm self or others. Onset of symptoms was June 13, 2020. 12:30 Method Of Arrival: Wheelchair sv 12:30 Acuity: JOAN 4 sv 12:32 Initial Sepsis Screen: Does the patient meet any 2 criteria? No. Patient's initial sv sepsis screen is negative. Does the patient have a suspected source of infection? No. Patient's initial sepsis screen is negative. Triage Assessment: 14:34 General: Behavior is calm, cooperative, appropriate for age. Injury Description: fell ll2 and twisted LT knee. 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 - Social history:: Smoking status: Patient reports the use of cigarette tobacco products, smokes one pack cigarettes per day. Screenin:33 Abuse screen: Denies threats or abuse. Nutritional screening: No deficits noted. em Tuberculosis screening: No symptoms or risk factors identified. Fall Risk None identified. Assessment: 12:48 General: Appears in no apparent distress. Pain: Complains of pain in left knee. Neuro: ll2 Level of Consciousness is awake, alert, obeys commands, Oriented to person, place, time, situation. Cardiovascular: Capillary refill < 3 seconds Patient's skin is warm and dry. Respiratory: Airway is patent Respiratory effort is even, unlabored, Respiratory pattern is regular, symmetrical. GI: No signs and/or symptoms were reported involving the gastrointestinal system. : No signs and/or symptoms were reported regarding the genitourinary system. EENT: No signs and/or symptoms were reported regarding the EENT system. Derm: Skin is intact, is healthy with good turgor, Skin is dry, Skin is pink, warm \T\ dry. Skin temperature is warm. Musculoskeletal: Circulation, motion, and sensation intact. Range of motion: limited in left knee. 13:35 Reassessment: Patient and/or family updated on plan of care and expected duration. Pain ll2 level reassessed. Patient is alert, oriented x 3, equal unlabored respirations, skin warm/dry/pink. Vital Signs: 12:32 BP 132 / 78; Pulse 67; Resp 16; Temp 98.3; Pulse Ox 98% ; Weight 113.4 kg; Height 5 ft. sv 10 in. (177.80 cm); Pain 3/10; 12:45 BP 141 / 82; Pulse 93; Resp 16; Pulse Ox 100% ; ll2 13:51 BP 157 / 69; Pulse 81; Resp 16; Pulse Ox 100% on R/A; ll2 12:32 Body Mass Index 35.87 (113.40 kg, 177.80 cm) sv ED Course: 12:24 Patient arrived in ED. ds1 12:30 Arm band placed on. sv 12:31 Triage completed. sv 12:33 Samuel Yanes, RN is Primary Nurse. em 12:34 Patient has correct armband on for positive identification. Bed in low position. Call em light in reach. Side rails up X2. 12:38 Terry Sadler PA is PHCP. cp 12:38 Jason Wilson MD is Attending Physician. cp 13:42 XRAY Knee LEFT 3 view In Process Unspecified. EDMS 14:06 Carlos Hess MD is Referral Physician. cp 14:33 No provider procedures requiring assistance completed. Patient did not have IV access ll2 during this emergency room visit. Administered Medications: 12:47 Drug: Ibuprofen 800 mg Route: PO; ll2 14:09 Follow up: Response: No adverse reaction ss Outcome: 14:06 Discharge ordered by . cp 14:33 Discharged to home via wheelchair. ll2 14:33 Condition: stable 14:33 Discharge instructions given to patient, Instructed on discharge instructions, follow up and referral plans. medication usage, Demonstrated understanding of instructions, follow-up care, medications, Prescriptions given X 1. 14:34 Patient left the ED. ll2 Signatures: Dispatcher [employer] Erna Amaro RN RN sv Munoz, Edgar RN Jennifer Suazo ds1 Tamar Goddard RN RN ss Page, Corey, ABHILASH PA Winsome Blackburn RN RN ll2 Corrections: (The following items were deleted from the chart) 12:32 12:30 Chief complaint: Patient states: slipped and fell onto the concrete earlier this morning. c/o left knee pain. sv
[2020-06-13 14:46] VITALS: TEMP 98.3
[2020-06-13 14:55] VITALS: O2SAT 100
[2020-06-13 14:57] VITALS: BP 157/69
== END 2020-06-13 14:34 | disposition home or self-care (01) ==
LOC: ER 12:23
DX: M25.562 Pain in left knee (principal); F17.210 Nicotine dependence, cigarettes, uncomplicated; Z88.5 Allergy status to narcotic agent
CPT/HCPCS: 99283

== ENCOUNTER 2020-06-30 09:26 | Emergency (ER) | payer OTHER ==
--- OUTSIDE RECORDS SUMMARY | 2020-06-30 09:29 | XMS REPORT | Continuity of Care Document ---
:1970 Author Organization [employer] Care Team Providers Name Role Phone [employer] Unavailable Un available Problems Problem Status Onset [...] (disorder) Active Problem 05/11/2019 [facility] [place] Spinal stenosis in Resolved Problem 05/11/2019 [facility] cervical region Neur o (disorder) Medications Medication Details Route Status Patient Ordering Order Source Instructions Provider Date amitriptyline 50 = 1 tab, Active Mische r mg oral tablet PO, 019 Neuro Bedtime, # 30 tab, Refill(s) 6, Pharmacy: [facility] amitriptyline 50 50 mg = 1 No Longer Mis roz mg oral tablet tab, PO, Active 019 Neuro Bedtime, # 30 tab, 6 Refill(s), Pharmacy: [facility] Allergies, Adverse Reactions, Alerts Substance Category [...] XR CERVICAL SPINE 2 VIEWS 09/10/2016 [facility] [place] view DX DATE: 09/10/2016 12:25 PM RN NIGHT INDICATION: 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, [...] Date Comments Source BMI Calculated 35.95 08/02/2018 [facility] [place] 113.636 08/02/2018 [facility] Height 177.8 cm 08/02/2018 [facility] Heart Rate 101 08/02/2018 [facility] Respitory Rate 16 08/02/2018 [facility] Systolic (mm Hg) 96 08/02/2018 [facility] [place] Diastolic (mm Hg) 65 08/02/2018 [facility] [place] [facility] [place] Encounters Location Location Encounter Encounter Reason Attending ADM VA Stat Source Details Type Number For Provider Date Date Visit Outpatient [id number] [place] 08/20 [facility] [place] Outpatient [id number] [place] 09/10 [facility] Outpt Diag [id number] [place] 09/10 09/11 [facility] [place] Outpatient [id number] H[place] 10/08 [facility] Outpatient [id number] H[place] 12/03 [facility] [place] Outpatient [id number] MINDY 03/08 Active [facility] Outpatient [id number] MINDY 08/02 Active [facility] [place] [facility] Outpatient [id number] Mindy 08/02 08/03 [facility] [place] [facility] Phone [id number] 09/20 09/22 Misc her Neurology [facility] [place] Outpatient [id number] MINDY 05/09 Active [facility]NA Ambulatory [id number] Mindy 05/09 05/09 [facility] Pre-[facility] [place] Procedures Procedure Code Date Perfomer Comments Source Cervical [id number] 08/04/2016 [facility] laminoplasty with Neuro,[facility] decompression of Mark spinal cord [id number] 2001 [facility] ligation<sup>1</sup [facility] > [place] Assessment and Plan No Data Provided for [...]
--- OUTSIDE RECORDS SUMMARY | 2020-06-30 09:29 | XMS REPORT | Continuity of Care Document ---
:1970 Author Organization [facility] t Address [address] [place] [address] Care Team Providers Name Role Phone Manuel Magana Attending Clinician Rodney Anguiano Jr Attending Clinician Payers Payer Name Policy Type Policy Number Effective Date Expiration Date S ource Problems Condition Condition Condition Status Onset Resolution Last Treating Co mments Source Name Details Category Date Date Treatment Clinician Date Polyneurop Problem Active 2019-05-11 M emoria athy - 22:04:36 l (disorder) 00:00: Bang n Polyneurop 00 athy (disorder) Active 03/04/2017 Problem 05/11/2019 [facility] Acute low Problem Active 2019-05-11 Me moria back pain 02-05 22:04:36 l (disorder) Acute 00:00: Chelsy nn low back 00 pain (disorder) Active 02/05/2017 Problem 05/11/2019 [facility] Cervical Problem Active 2019-05-11 Mem oria spondylosi 02-05 22:04:36 l s with Cervical 00:00: Bang n myelopathy spondylosi 00 (disorder) s with myelopathy (disorder) Active 02/05/2017 Problem 05/11/2019 [facility] Essential Problem Active 2019-05-11 Me moria hypertensi - 22:04:36 l on 00:00: Mark (disorder) Essential 00 hypertensi on (disorder) Active 02/05/2017 Problem 05/11/2019 [facility] Paresthesi Problem Active 2019-05-11 M emoria a - 22:04:36 l (finding) 00:00: Mark Paresthesi 00 a (finding) Active 02/05/2017 Problem 05/11/2019 [facility] Family Problem Resolve 2019-05-11 Tony carol history: d 22:04:36 l Hypertensi Family Herm shadi on history: (context-d Hypertensi ependent on category) (context-d ependent category) Resolved Problem 05/11/2019 [facility] Gastroesop Problem Resolve 2019-05-11 Memoria hageal d 22:04:36 l reflux Mark disease Gastroesop (disorder) hageal reflux disease (disorder) Resolved Problem 05/11/2019 [facility] Movement Problem Resolve 2019-05-11 Me moria disorder d 22:04:36 l (disorder) Movement He rmann disorder (disorder) Resolved Problem 05/11/2019 [facility] Fibromyosi Problem Resolve 2019-05-11 Memoria tis d 22:04:36 l (disorder) Bang n Fibromyosi tis (disorder) Resolved Problem 05/11/2019 [facility] Spinal Problem Resolve 2019-05-11 Tony carol stenosis d 22:04:36 l in Spinal Mark cervical stenosis region in (disorder) cervical region (disorder) Resolved Problem 05/11/2019 [facility] Obesity Problem Active 2019-05-11 Tony carol (disorder) 22:04:36 l Obesity Hyndman (disorder) Active Problem 05/11/2019 [facility] RUPERTO Flores Allergies, Adverse Reactions, Alerts Allergy Allergy Status Severity Reaction(s) Onset Inactive Treating Comm ents Source Name Type Date Date Clinician codeine codeine Active Memoria phosphat phosphat Lelia Social History Smoking Status Start Date Stop Date Source Social History 2016-09-10 19:16:20 [facility] Medications Ordered Filled Start Stop Current Ordering Indication Dosage Frequency Signature Comments Components Source Medication Medication Date Date Medication? Clinician (SIG) Name Name amitriptyli 2019 Yes = 1 tab, Me moria ne 50 mg 8-19 PO, l oral tablet 19:26: Bedtime, Benjie Flores 52 30 tab, Refill(s) 6, Pharmacy: [facility] amitriptyli 2018- No 50 mg = 1 M emoria ne 50 mg 2-05 tab, PO, l oral tablet 23:04: Bedtime, Benjie Flores 16 30 tab, 6 Refill(s), Pharmacy: [facility] Vital Signs Vital Name Observation Time Observation Value Comments Source BMI Calculated 2018-08-02 21:19:00 Shelley Collins Weight 2018-08-02 21:19:00 Roshni Hyndman Height 2018-08-02 21:19:00 177.8 cm Roshni Flores Heart Rate 2018-08-02 21:19:00 Roshni Hyndman Respitory Rate 2018-08-02 21:19:00 Shelley al Mark Systolic (mm Hg) 2018-08-02 21:19:00 Tonyxena garibay Hyndman Diastolic (mm Hg) 2018-08-02 21:19:00 Mem orial Hyndman Procedures Procedure Date / Time Performed Performing Clinician [facility] meron Cervical laminoplasty with 2016-08-04 06:00:00 M marianrifahad Flores decompression of spinal cord [facility] Encounters Start End Encounter Admission Attending Care Care Encounter Source Date/Time Date/Time Type Type Clinicians Facility Department ID 2019-05-09 2019-05-09 [id number] 15:30:00 15:30:00 Emigdio 06 Manuel 2018-09-20 2018-09-21 Outpatient HODANSCHER MISCHER [id number] 17:02:00 23:59:59 06 2018-08-02 2018-08-02 [facility] [id number] 15:00:00 23:59:59 Emigdio 05 Manuel 2016-09-10 2016-09-10 Out[facility] [id number] 12:11:00 23:59:00 Hamilton Stevens Results This patient has no known results.
[2020-06-30] MEDS ORDERED: METHYLPREDNISOLONE 125 MG INJ ONE (10:36)
[2020-06-30] MEDS ORDERED: ALBUTEROL 2.5 MG/3 ML NEB SOL ONE (10:37)
[2020-06-30] MEDS ORDERED: IPRATROPIUM BROM 0.5MG/2.5ML ONE (10:37)
--- NOTE | 2020-06-30 10:42 | RAD REPORT ---
EXAM DESCRIPTION: Abhi Single View06/30/2020 10:24 am CLINICAL HISTORY: Cough COMPARISON: 2009 FINDINGS: The lungs appear clear of acute infiltrate. The heart is normal size IMPRESSION: No acute abnormalities displayed
[2020-06-30 10:56] LABS: ALT/SGPT 39 U/L (12-78); AST/SGOT 23 U/L (15-37); Albumin 3.5 g/dL (3.4-5.0); Alkaline Phosphatase 155 U/L (45-117); BUN Blood Urea Nitrogen 18 mg/dL (7-18); Bicarbonate 24 mmol/L (21-32); Bilirubin Direct < 0.1 mg/dL (0-0.2); Bilirubin Total 0.3 mg/dL (0.2-1.0); Glucose Level 134 mg/dL (74-106); Magnesium 2.2 mg/dL (1.8-2.4); NT PRO-BNP 18 pg/mL (<125); Potassium 4.6 mmol/L (3.5-5.1); Protein, Total 7.4 g/dL (6.4-8.2); Sodium Level 140 mmol/L (136-145); Troponin (Emerg Dept Use Only) < 0.02 ng/mL (0.0-0.045)
[2020-06-30 11:20] LABS: Absolute Lymphocytes (CBC) 3.1 K/uL (0.7-4.9); Hematocrit 45.4 % (36.0-45.0); Lymphocytes % 30.9 % (15.3-44.8); MPV 8.2 fL (7.6-11.3); RBC Red Blood Cell Count 4.95 M/uL (3.86-4.86)
[2020-06-30 11:22] LABS: Protime INR 1.09
--- NOTE | 2020-06-30 11:31 | ER ---
Nurse's Notes [facility] Name: Mariza Alicea Age: 49 yrs Sex: Female : 1970 Arrival Date: 06/30/2020 Time: 09:28 Bed 7 Private MD: Manuel Horne E Diagnosis: Acute upper respiratory infection, unspecified Presentation: 06/30 09:41 Chief complaint: Patient states: productive cough with clear sputum x 1 week ago, pt aa5 also reports SOB. Denies pain, denies fever. 09:41 Acuity: JOAN 3 aa5 09:41 Initial Sepsis Screen: Does the patient meet any 2 criteria? HR > 90 bpm. Does the aa5 patient have a suspected source of infection? Yes: Productive cough/pneumonia. Risk Assessment: Do you want to hurt yourself or someone else? Patient reports no desire to harm self or others. 09:41 Coronavirus screen: cough unrelated to allergies, shortness of breath, Client presents aa5 with at least one sign or symptom that may indicate coronavirus-19. Standard/surgical mask placed on the client. Provider contacted for isolation considerations. Ebola Screen: Patient negative for fever greater than or equal to 101.5 degrees Fahrenheit, and additional compatible Ebola Virus Disease symptoms. Onset of symptoms was June 2020. 09:41 Method Of Arrival: Ambulatory aa5 Triage Assessment: 09:45 General: Appears distressed, comfortable, obese, Behavior is cooperative, appropriate bp for age, anxious. Pain: Denies pain. EENT: No deficits noted. Neuro: No deficits noted. Cardiovascular: Rhythm is sinus tachycardia. Respiratory: Reports shortness of breath cough that is productive, Onset: The symptoms/episode began/occurred at an unknown time. the patient has moderate shortness of breath. GI: No signs and/or symptoms were reported involving the gastrointestinal system. : No signs and/or symptoms were reported regarding the genitourinary system. Derm: No deficits noted. Musculoskeletal: No deficits noted. Historical: - Allergies: 09:42 Codeine; aa5 - Home Meds: :42 Lisinopril Oral [Active]; Lyrica Oral [Active]; Omeprazole Oral [Active]; Singulair aa5 Oral [Active]; Ambien Oral [Active]; Belbuca buccal buccal [Active]; - PMHx: 09:42 palpitations; Hypertension; Heart Burn; aa5 - PSHx: 09:42 Hysterectomy; Cervical with screws; aa5 - Immunization history:: Adult Immunizations unknown. - Social history:: Smoking status: Patient reports the use of cigarette tobacco products, smokes one pack cigarettes per day. Screenin:30 Abuse screen: Denies threats or abuse. Denies injuries from another. Nutritional bp screening: No deficits noted. Tuberculosis screening: No symptoms or risk factors identified. Fall Risk None identified. Assessment: 09:45 General: SEE TRIAGE NOTE. bp 11:00 Cardiovascular: Rhythm is sinus tachycardia. Respiratory: Airway is patent Respiratory bp effort is even, unlabored, Respiratory pattern is regular, symmetrical, Breath sounds are coarse bilaterally. 12:07 Reassessment: Patient appears in no apparent distress at this time. No changes from bp previously documented assessment. Patient and/or family updated on plan of care and expected duration. Pain level reassessed. D/C ON HOLD FOR FINAL MEDICATIONS Patient states symptoms have improved. 12:41 Reassessment: PT D/C HOME AMBULATORY WITH FAMILY, DX WITH URI. bp Vital Signs: 09:41 BP 142 / 79; Pulse 110; Resp 20 S; Temp 98.9(O); Pulse Ox 95% on R/A; Weight 116.57 kg aa5 (R); Height 5 ft. 10 in. (177.80 cm) (R); Pain 0/10; 11:00 BP 126 / 68; Pulse 99; Resp 16; Pulse Ox 99% ; bp 12:07 BP 124 / 66; Pulse 100; Resp 19; Temp 98.7; Pulse Ox 95% ; bp 12:41 BP 127 / 65; Pulse 100; Resp 17; Temp 98.5; Pulse Ox 95% ; bp 09:41 Body Mass Index 36.88 (116.57 kg, 177.80 cm) aa5 ED Course: 09:28 Patient arrived in ED. ag5 09:28 Manuel Horne MD is Private Physician. ag5 09:30 Kim[facility] Baldwin [facility] pm1 09:30 Jeanmarie Marino MD is Attending Physician. pm1 09:30 Patient has correct armband on for positive identification. Bed in low position. Call bp light in reach. Side rails up X2. Adult w/ patient. 09:33 Jeanmarie Marino MD is Attending Physician. pm1 09:41 Arm band placed on Patient placed in an exam room, on a stretcher. aa5 09:57 Triage completed. aa5 10:05 Sea Davila, RN is Primary Nurse. bp 10:19 XRAY Chest (1 view) Sent. bp 10:24 XRAY Chest (1 view) In Process Unspecified. EDMS 10:30 Inserted saline lock: 22 gauge in left hand, using aseptic technique. bp 12:41 No provider procedures requiring assistance completed. IV discontinued, intact, bp bleeding controlled, No redness/swelling at site. Pressure dressing applied. Administered Medications: 10:30 Drug: Albuterol - atroVENT (3:1) (2.5 mg - 0.5 mg) 3 ml Route: Nebulizer; bp 11:55 Follow up: Response: No adverse reaction bp 10:30 Drug: SOLU-Medrol 125 mg Route: IVP; Site: left hand; bp 11:55 Follow up: Response: No adverse reaction bp 11:45 Drug: Rocephin 1 grams Route: IV; Rate: calculated rate; Site: left wrist; bp 12:44 Follow up: IV Status: Completed infusion; IV Intake: 100ml bp 12:00 Drug: Tussionex Pennkinetic ER 5 ml Route: PO; bp 12:43 Follow up: Response: No adverse reaction; Pain is decreased bp Intake: 12:44 IV: 100ml; Total: 100ml. bp Outcome: 11:30 Discharge ordered by MD. pm1 12:41 Discharged to home ambulatory, with family. bp 12:41 Condition: stable 12:41 Discharge instructions given to patient, Instructed on discharge instructions, follow up and referral plans. medication usage, Demonstrated understanding of instructions, follow-up care, medications, Prescriptions given X 4. 12:44 Patient left the ED. bp Addendum: 07/03/2020 09:23 Addendum: COVID-19 Result: Negative result given to RN to notify pt. Other: pt called b d for results. results given by Roma Quintero. Signatures: Dispatcher [employer] EDMS Yuridia Josue Audri, RN RN aa5 Kimani Baldwin, MASS SPECTROMETRY SPECIALIST MASS SPECTROMETRY SPECIALIST pm1 Sea Davila, RN RN bp Bam Mckinney ag5
--- NOTE | 2020-06-30 11:31 | EDPHYS ---
Physician Documentation [facility] Name: Mariza Alicea Age: 49 yrs Sex: Female : 1970 Arrival Date: 06/30/2020 Time: 09:28 Bed 7 Private MD: Manuel Horne E ED Physician Jeanmarie Marino HPI: 06/30 09:55 This 49 yrs old Female presents to ER via Ambulatory with complaints of pm1 Breathing Difficulty, Cough. 09:55 The patient has shortness of breath at rest. Onset: The symptoms/episode began/occurred pm1 1 week(s) ago. Duration: The symptoms are continuous. The patient's shortness of breath is aggravated by nothing, is alleviated by nothing. Associated signs and symptoms: Pertinent positives: productive cough, Pertinent negatives: chest pain, fever. Severity of symptoms: in the emergency department the symptoms are worse. The patient has not recently seen a physician. Historical: - Allergies: 09:42 Codeine; aa5 - Home Meds: 09:42 Lisinopril Oral [Active]; Lyrica Oral [Active]; Omeprazole Oral [Active]; Singulair aa5 Oral [Active]; Ambien Oral [Active]; Belbuca buccal buccal [Active]; - PMHx: 09:42 palpitations; Hypertension; Heart Burn; aa5 - PSHx: 09:42 Hysterectomy; Cervical with screws; aa5 - Immunization history:: Adult Immunizations unknown. - Social history:: Smoking status: Patient reports the use of cigarette tobacco products, smokes one pack cigarettes per day. ROS: 09:55 Constitutional: Negative for fever, chills, and weight loss, Neck: Negative for injury, pm1 pain, and swelling, Cardiovascular: Negative for chest pain, palpitations, and edema. 09:55 Abdomen/GI: Negative for abdominal pain, nausea, vomiting, diarrhea, and constipation, Back: Negative for injury and pain, MS/Extremity: Negative for injury and deformity, Skin: Negative for injury, rash, and discoloration, Neuro: Negative for headache, weakness, numbness, tingling, and seizure. 09:55 Respiratory: Positive for cough, with white sputum, shortness of breath, wheezing. Exam: 09:55 Constitutional: This is a well developed, well nourished patient who is awake, alert, pm1 and in no acute distress. Head/Face: Normocephalic, atraumatic. Chest/axilla: Normal chest wall appearance and motion. Nontender with no deformity. No lesions are appreciated. 09:55 Back: No spinal tenderness. No costovertebral tenderness. Full range of motion. Skin: Warm, dry with normal turgor. Normal color with no rashes, no lesions, and no evidence of cellulitis. MS/ Extremity: Pulses equal, no cyanosis. Neurovascular intact. Full, normal range of motion. 09:55 Cardiovascular: Exam negative for acute changes, Rate: normal, Rhythm: regular, Pulses: no pulse deficits are appreciated. 09:55 Respiratory: the patient does not display signs of respiratory distress, Breath sounds: wheezing: expiratory is heard diffusely. 09:55 Abdomen/GI: Exam negative for acute changes, Inspection: abdomen appears normal, Palpation: abdomen is soft and non-tender, in all quadrants. 09:55 Neuro: Exam negative for acute changes, Orientation: is normal, Mentation: is normal, Motor: is normal, moves all fours. Vital Signs: 09:41 BP 142 / 79; Pulse 110; Resp 20 S; Temp 98.9(O); Pulse Ox 95% on R/A; Weight 116.57 kg aa5 (R); Height 5 ft. 10 in. (177.80 cm) (R); Pain 0/10; 11:00 BP 126 / 68; Pulse 99; Resp 16; Pulse Ox 99% ; bp 12:07 BP 124 / 66; Pulse 100; Resp 19; Temp 98.7; Pulse Ox 95% ; bp 12:41 BP 127 / 65; Pulse 100; Resp 17; Temp 98.5; Pulse Ox 95% ; bp 09:41 Body Mass Index 36.88 (116.57 kg, 177.80 cm) aa5 MDM: 09:44 Patient medically screened. pm1 11:24 Data reviewed: vital signs. Data interpreted: Pulse oximetry: on room air is 99 %. pm1 Interpretation: normal. Counseling: I had a detailed discussion with the patient and/or guardian regarding: the historical points, exam findings, and any diagnostic results supporting the discharge/admit diagnosis, lab results, radiology results, the need for outpatient follow up, to return to the emergency department if symptoms worsen or persist or if there are any questions or concerns that arise at home. 12:09 ED course: Patient prescribed antibiotics for URI due to highly likely undiagnosed pm1 COPD. I think this is a COPD exacerbation. Patient has been smoking 1 pack per day for the past 30 years. Patient has a smoker's cough that has a change in sputum for the past 1 week with difficulty breathing. Therefore I will treat her as a COPD exacerbation which includes antibiotics, steroids, and breathing treatments. 06/30 09:55 Order name: Flu; Complete Time: 11:21 pm1 06/30 09:55 Order name: Strep; Complete Time: 11:21 pm1 06/30 09:55 Order name: COVID-19 pm1 06/30 09:55 Order name: Basic Metabolic Panel; Complete Time: 11:00 pm1 06/30 09:55 Order name: CBC with Diff; Complete Time: 11:21 pm1 06/30 09:55 Order name: LFT's; Complete Time: 11:00 pm1 06/30 09:55 Order name: Magnesium; Complete Time: 11:00 pm1 06/30 09:55 Order name: NT PRO-BNP; Complete Time: 11:00 pm1 06/30 09:55 Order name: PT-INR; Complete Time: 11:23 pm1 06/30 09:55 Order name: Troponin (emerg Dept Use Only); Complete Time: 11:00 pm1 06/30 09:55 Order name: XRAY Chest (1 view); Complete Time: 10:43 pm1 06/30 11:07 Order name: Throat Culture EDUT 06/30 09:55 Order name: Cardiac monitoring; Complete Time: 11:29 pm1 06/30 09:55 Order name: EKG - Nurse/Tech; Complete Time: 11:29 pm1 06/30 09:55 Order name: IV Saline Lock; Complete Time: 11:29 pm1 06/30 09:55 Order name: Labs collected and sent; Complete Time: 10:19 pm1 06/30 09:55 Order name: O2 Per Protocol; Complete Time: 10: pm1 06/30 09:55 Order name: O2 Sat Monitoring; Complete Time: 10: pm1 06/30 10:48 Order name: Labs - recollect needed: please recollect purple and blue they are clotted; eb Complete Time: 10:58 Administered Medications: 10:30 Drug: Albuterol - atroVENT (3:1) (2.5 mg - 0.5 mg) 3 ml Route: Nebulizer; bp 11:55 Follow up: Response: No adverse reaction bp 10:30 Drug: SOLU-Medrol 125 mg Route: IVP; Site: left hand; bp 11:55 Follow up: Response: No adverse reaction bp 11:45 Drug: Rocephin 1 grams Route: IV; Rate: calculated rate; Site: left wrist; bp 12:44 Follow up: IV Status: Completed infusion; IV Intake: 100ml bp 12:00 Drug: Tussionex Pennkinetic ER 5 ml Route: PO; bp 12:43 Follow up: Response: No adverse reaction; Pain is decreased bp Disposition: 14:28 Co-signature as Attending Physician, Jeanmarie Marino MD. rn Disposition: 06/30/20 11:30 Discharged to Home. Impression: Acute upper respiratory infection, unspecified. - Condition is Stable. - Discharge Instructions: Steps to Quit Smoking, Smoking Hazards, Upper Respiratory Infection, Adult. - Prescriptions for Zithromax Z- Tushar 250 mg Oral Tablet - take 1 tablet by ORAL route as directed for 5 days Day 1 - take two (2) tablets one time. Day 2, 3, 4 , 5 take one (1) tablet once daily.; 6 tablet. Medrol (Tushar) 4 mg Oral Tablets, Dose Pack - take 1 tablet by ORAL route as directed - follow package instructions; 1 packet. Albuterol Sulfate 90 mcg/actuation - inhale 1-2 puff by INHALATION route every 4-6 hours; 1 Inhaler. Guaifenesin AC 10- 100 mg/5 mL Oral Liquid - take 10 milliliter by ORAL route every 4 hours As needed; 240 milliliter. - Medication Reconciliation Form, Thank You Letter, Antibiotic Education, Prescription Opioid Use form. - Follow up: Emergency Department; When: As needed; Reason: Worsening of condition. Follow up: Private Physician; When: 2 - 3 days; Reason: Recheck today's complaints, Continuance of care, Re-evaluation by your physician. - Problem is new. - Symptoms have improved. Signatures: Dispatcher [employer] EDMS Jeanmarie Marino MD MD rn Calderon, Audri RN RN aa5 Kimani Baldwin NP SHIP SURVEYOR pm1 Sea Davila, RN RN Deysi York Corrections: (The following items were deleted from the chart) 12:44 11:30 06/30/2020 11:30 Discharged to Home. Impression: Acute upper respiratory bp infection, unspecified. Condition is Stable. Forms are Medication Reconciliation Form, Thank You Letter, Antibiotic Education, Prescription Opioid Use. Follow up: Emergency Department; When: As needed; Reason: Worsening of condition. Follow up: Private Physician; When: 2 - 3 days; Reason: Recheck today's complaints, Continuance of care, Re-evaluation by your physician. Problem is new. Symptoms have improved. pm1
[2020-06-30] MEDS ORDERED: CEFTRIAXONE/SWI 1gm 1 GM/10 ML SYR ONE (11:52)
[2020-06-30] MEDS ORDERED: NA CHLORIDE 0.9% 100 ML ONE (12:16)
[2020-06-30] MEDS ORDERED: HYDROCODONE/CHLORPHEN 5 ML/OSYR ONE (12:16)
[2020-06-30 13:20] VITALS: O2SAT 95
[2020-06-30 13:26] VITALS: BP 127/65; TEMP 98.5
== END 2020-06-30 12:44 | disposition home or self-care (01) ==
LOC: ER 09:26
DX: J06.9 Acute upper respiratory infection, unspecified (principal); I10 Essential (primary) hypertension; R12 Heartburn; F17.210 Nicotine dependence, cigarettes, uncomplicated; Z20.828 Contact with and (suspected) exposure to other viral communicable diseases; Z88.6 Allergy status to analgesic agent
CPT/HCPCS: 96365; 87070; 85025; 80048; 36415; 83735; 85610; 80076; 87081; 84484; 83880; 87804 ×2; 71045; 96375; 99285; U0002; J0696; J2930

== ENCOUNTER 2020-11-01 12:13 | Emergency (ER) | payer OTHER ==
--- OUTSIDE RECORDS SUMMARY | 2020-11-01 12:15 | XMS REPORT | Continuity of Care Document ---
:1970 Author Organization [facility] t Address [address] [place] [address] Care Team Providers Name Role Phone Manuel Magana Attending Clinician Rodney Anguiano Jr Attending Clinician Payers Payer Name Policy Type Policy Number Effective Date Expiration Date S ource Problems Condition Condition Condition Status Onset Resolution Last Treating Co mments Source Name Details Category Date Date Treatment Clinician Date Polyneurop Problem Active 2019-05-11 M emoria athy 7-20 22:04:36 l (disorder) 00:00: Bang hobson Polyneurop 00 athy (disorder) Active 03/04/2017 Problem 05/11/2019 [facility] Acute low Problem Active 2019-05-11 Me moria back pain 6- 22:04:36 l (disorder) Acute 00:00: Chelsy nn low back 00 pain (disorder) Active 02/05/2017 Problem 05/11/2019 [facility] Cervical Problem Active 2019-05-11 Mem oria spondylosi 6- 22:04:36 l s with Cervical 00:00: Bang n myelopathy spondylosi 00 (disorder) s with myelopathy (disorder) Active 02/05/2017 Problem 05/11/2019 [facility] Essential Problem Active 2017-2019-05-11 Me moria hypertensi 02-05 22:04:36 l on 00:00: Mark (disorder) Essential 00 hypertensi on (disorder) Active 02/05/2017 Problem 05/11/2019 [facility] Paresthesi Problem Active 2019-05-11 Lisbeth parikh a 02-05 22:04:36 l (finding) 00:00: [place] Paresthesi 00 a (finding) Active 02/05/2017 Problem [...] 2019-05-11 Tony carol (disorder) 22:04:36 l Obesity [place] (disorder) Active Problem 05/11/2019 [facility] Mark Allergies, Adverse Reactions, Alerts Allergy Allergy Status Severity Reaction(s) Onset Inactive Treating Comm ents Source Name Type Date Date Clinician No Known DA Active U 2019-08 [facility] Allergie 09-03 Clear s 00:00: Mccurdy [address] [facility] codeine codeine Active Jimmy Flores Social History Smoking Status Start Date Stop Date Source Social History 2018-08-02 21:20:07 [facility] Medications Ordered Filled Start Stop Current Ordering Indication Dosage Frequency Signature Comments Components Source Medication Medication Date Date Medication? Clinician (SIG) Name Name amitriptyli 2019-0 Yes = 1 tab, Me moria ne 50 mg 8-19 PO, l oral tablet 19:26: Bedtime, # Mark 52 30 tab, Refill(s) 6, Pharmacy: [facility] amitriptyli 2019-0 No 50 mg = 1 M emoria ne 50 mg 2-05 tab, PO, l oral tablet 23:04: Bedtime, # Mark 16 30 tab, 6 Refill(s), Pharmacy: [facility] Vital Signs Vital Name Observation Time Observation Value Comments Source BMI Calculated 2018-08-02 21:19:00 Shelley Collins Weight 2018-08-02 21:19:00 [facility] [place] Height 2018-08-02 21:19:00 177.8 cm [facility] Heart Rate 2018-08-02 21:19:00 [facility] [place] Respitory Rate 2018-08-02 21:19:00 Shelley al [place] Systolic (mm Hg) 2018-08-02 21:19:00 Tonyxena Holguinann Diastolic (mm Hg) 2018-08-02 21:19:00 Mem orial Mark Procedures Procedure Date / Time Performed Performing Clinician [facility] meron Cervical laminoplasty with 2016-08-04 06:00:00 M dick Flores decompression of spinal cord Tubal ligation [facility] Encounters Start End Encounter Admission Attending Care Care Encounter Source Date/Time Date/Time Type Type Clinicians Facility Department ID 2019-05-09 2019-05-09 Outpatient MONA Magana [id number] 15:30:00 15:30:00 Emigdio 06 Manuel 2018-09-20 2018-09-21 Outpatient MONA PETTITSCHPRINCE [id number] 17:02:00 23:59:59 2018-08-02 2018-08-02 Outpatient MONA Magana [id number] 15:00:00 23:59:59 Emigdio 05 Manuel 2016-09-10 2016-09-10 Outpatient Annmarie JAIME [facility] [id number] 12:11:00 23:59:00 Hamilton Stevens Results Test Description Test Time Test Comments Results Result Comments Source Novel Coronavirus 2019 Inhouse 2020-07-16 11:12:00 Test Item Value Reference Range Interpretation Comme nts Novel Coronavirus 2018 Negative Negative Posit fernie results are indicative of the Inhouse (test code = presenc e [id number] RNA, clinical COVNONPUI) correlation wit h patient historyand other diagnosti c information is necessary to de terminepatient infection status. Positiv e results do not rule outbacterial in fection or co-infection with other viru ses. Negative results do not preclude SA RS-CoV-2 infection andshould not b e used as the sole basis for patient man agementdecisions. Negative result s must be combined with otherclinical o bservations, patient history, and ep idemiologicalinformation. Detection of SA RS-CoV-2 RNA may be affected bysamp le collection methods, storage conditi ons, and/or stageof infection. Neva l RNA mutations, vaccinations, a ntiviraltherapeutics, antibiotics, ch emotherapeutic orimmunosuppres nuria drugs have not been evaluated for e ffectson detection. Results are for the identification of SARS-CoV-2 RNA usingthe [employer] M2000 System under th e FDA Emergency UseAuthorizatio n. The testing is performed by deni rsonneltrained in the procedures for the Process Data Control000 moleculardiagno stic SARS-CoV-2 assay in vitro. Novel Coronavirus 2018 [id number] 11:11:00 Test Item Value Reference Range Interpretation Comments Novel Coronavirus Negative Negative Positive r esults are 2019 Inhouse (test indicativ e of the presence code = COVNONPUI) ofSARS-CoV -2 RNA, clinical correlation wit h patient historyand othe r diagnostic info rmation is necessary to determinepatien t infection status. Positiv e results do not rule out bacterial infection or co -infection with other viru ses. Negative result s do not preclude SARS-C oV-2 infection andsh ould not be used as the cathi e basis for patient managementdecis ions. Negative result s must be combined with otherclinical observations, p atient history, and epidemiological information . Detection of SARS-CoV-2 RNA may be affe cted bysample collec tion methods, storag e conditions, and /or stageof infection. Neva l RNA mutations, vacc inations, antiviraltherap eutics, antibiotics, chemotherapeuti c orimmunosuppres nuria drugs have not been e valuated for effectson d etection. Results are for the identification of SARS-CoV-2 RNA usingthe Process Data Control000 Sy stem under the FDA Emergen cy UseAuthorizatio n. The testing is perf ormed by yogi d in the procedures for the Process Data Control000 molecular diagnostic SARS-CoV-2 assa y in vitro.
[2020-11-01] MEDS ORDERED: NA CHLORIDE 0.9% 1,000 ML ONE (15:09)
[2020-11-01] MEDS ORDERED: ONDANSETRON 4 MG/2 ML VIAL ONE (15:10)
[2020-11-01] MEDS ORDERED: MORPHINE 4 MG/ML SYR ONE (15:10)
[2020-11-01 15:20] LABS: Absolute Lymphocytes (CBC) 2.6 K/uL (0.7-4.9); Basophils % 1.1 % (0-1.3); Hematocrit 44.9 % (36.0-45.0); Lymphocytes % 29.6 % (15.3-44.8); MPV 8.4 fL (7.6-11.3)
[2020-11-01 15:29] LABS: ALT/SGPT 54 U/L (12-78); Alkaline Phosphatase 143 U/L (45-117); BUN Blood Urea Nitrogen 20 mg/dL (7-18); Bicarbonate 29 mmol/L (21-32); Bilirubin Direct < 0.1 mg/dL (0-0.2); Bilirubin Total 0.2 mg/dL (0.2-1.0); Glucose Level 96 mg/dL (74-106); Lipase 87 U/L (73-393); Sodium Level 139 mmol/L (136-145)
[2020-11-01 15:32] LABS: AST/SGOT 26 U/L (15-37); Potassium 4.5 mmol/L (3.5-5.1)
--- NOTE | 2020-11-01 15:34 | RAD REPORT ---
EXAM DESCRIPTION: US - Abdomen Exam Limited - 11/01/2020 3:24 pm CLINICAL HISTORY: ABD PAIN COMPARISON: No comparisonsAbdomen Exam Limited dated 07/22/2018 FINDINGS: The gallbladder demonstrates no gallstones. No pericholecystic fluid or gallbladder wall t hickening. The common bile duct is normal measuring 4 mm. The liver demonstrates no findings of intrahepatic biliary dilatation. IMPRESSION: Unremarkable examination.
--- NOTE | 2020-11-01 16:10 | RAD REPORT ---
EXAM DESCRIPTION: CTAbdomen Pelvis W Contrast - 11/01/2020 4:02 pm CLINICAL HISTORY: Abdominal pain. ABD PAIN COMPARISON: <Comparisons> TECHNIQUE: Biphasic CT imaging of the abdomen and pelvis was performed with 100 ml non-ionic IV cont rast. All CT scans are performed using dose optimization technique as appropriate and may include automated exposure control or mA/KV adjustment according to patient size. FINDINGS: The lung bases are clear.Small hiatal hernia. The liver demonstrates diffuse fatty infiltration. The spleen, pancreas, adrenal glands and kidneys a re within normal limits. No bowel obstruction, free air, free fluid or abscess. The appendix is normal. No evidence of signi ficant lymphadenopathy. No suspicious bony findings. IMPRESSION: No acute intra-abdominal or pelvic finding.
--- NOTE | 2020-11-01 16:15 | EDPHYS ---
Physician Documentation [facility] Name: Mariza Alicea Age: 50 yrs Sex: Female : 1970 Arrival Date: 11/01/2020 Time: 12:14 Bed 24 Private MD: ED Physician Jason Wilson HPI: 11/01 16:13 This 50 yrs old Female presents to ER via Ambulatory with complaints of kb Abdominal Pain, Vomiting. 16:13 The patient presents with abdominal pain in the right upper quadrant. Onset: The kb symptoms/episode began/occurred 2 week(s) ago. The symptoms radiate to right back. Associated signs and symptoms: Pertinent positives: nausea, vomiting, and diarrhea, Pertinent negatives: fever. The symptoms are described as intermittent. Modifying factors: The symptoms are alleviated by nothing, the symptoms are aggravated by nothing. Severity of pain: At its worst the pain was moderate in the emergency department the pain is unchanged. The patient has experienced a previous episode. The patient has not recently seen a physician. Pt reports she has had RUQ pain for 2 weeks with diarrhea. Yesterday has nausea and vomiting as well after eating. PARTS RUNNER: 12:53 LMP N/A - Hysterectomy ca1 Historical: - Allergies: 12:53 Codeine; ca1 - PMHx: 12:53 heart burn; Hypertension; palpitations; Diabetes - NIDDM; ca1 - PSHx: 12:53 Hysterectomy; Cervical with screws; ca1 - Immunization history:: Flu vaccine is not up to date. - Social history:: Smoking status: Patient reports the use of cigarette tobacco products, smokes one pack cigarettes per day. ROS: 16:12 Constitutional: Negative for fever, chills, and weight loss, Cardiovascular: Negative kb for chest pain, palpitations, and edema, Respiratory: Negative for shortness of breath, cough, wheezing, and pleuritic chest pain, Back: Negative for injury and pain, MS/Extremity: Negative for injury and deformity, Skin: Negative for injury, rash, and discoloration, Neuro: Negative for headache, weakness, numbness, tingling, and seizure. 16:12 Abdomen/GI: Positive for abdominal pain, nausea, vomiting, and diarrhea. Exam: 16:12 Constitutional: This is a well developed, well nourished patient who is awake, alert, kb and in no acute distress. Head/Face: Normocephalic, atraumatic. Cardiovascular: Regular rate and rhythm with a normal S1 and S2. No gallops, murmurs, or rubs. No pulse deficits. Respiratory: Respirations even and unlabored. No increased work of breathing, no retractions or nasal flaring. Skin: Warm, dry with normal turgor. Normal color. MS/ Extremity: Pulses equal, no cyanosis. Neurovascular intact. Full, normal range of motion. Neuro: Awake and alert, GCS 15, oriented to person, place, time, and situation. Moves all extremities. Normal gait. 16:12 Abdomen/GI: Inspection: abdomen appears normal, Bowel sounds: normal, Palpation: soft, in all quadrants, mild abdominal tenderness, in the right upper quadrant. Vital Signs: 12:51 BP 145 / 88; Pulse 88; Resp 16 S; Temp 97.1(TE); Pulse Ox 98% on R/A; Weight 122.47 kg ca1 (R); Height 5 ft. 10 in. (177.80 cm) (R); Pain 4/10; 14:44 BP 146 / 78; Pulse 70; Resp 16; Pulse Ox 98% on R/A; vg1 16:00 BP 140 / 84; Pulse 75; Resp 16; Pulse Ox 98% on R/A; vg1 12:51 Body Mass Index 38.74 (122.47 kg, 177.80 cm) ca1 MDM: 14:23 Patient medically screened. kb 16:13 Data reviewed: vital signs, nurses notes. Data interpreted: Pulse oximetry: on room air kb is 98 %. Interpretation: normal. 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 11/01 14:23 Order name: Basic Metabolic Panel kb 11/01 14:23 Order name: CBC with Diff kb 11/01 14:23 Order name: Hepatic Function; Complete Time: 15:40 kb 11/01 14:23 Order name: Lipase; Complete Time: 15:40 kb 11/01 14:24 Order name: Basic Metabolic Panel; Complete Time: 15:40 EDMS 11/01 14:24 Order name: CBC with Automated Diff; Complete Time: 15:40 EDMS 11/01 14:23 Order name: IV Saline Lock; Complete Time: 15:08 kb 11/01 14:23 Order name: Labs collected and sent; Complete Time: 15:08 kb 11/01 14:32 Order name: US Abdomen Limited; Complete Time: 15:40 kb 11/01 15:40 Order name: CT Abd/Pelvis - IV Contrast Only; Complete Time: 16:12 kb Administered Medications: 15:16 Drug: NS 0.9% 1000 ml Route: IV; Rate: 1000 ml; Site: right antecubital; vg1 16:30 Follow up: IV Status: Completed infusion vg1 15:16 Drug: Zofran (Ondansetron) 4 mg Route: IVP; Site: right antecubital; vg1 16:43 Follow up: Response: No adverse reaction; Nausea is decreased vg1 15:16 Drug: morphine 4 mg {Note: rass 0.} Route: IVP; Site: right antecubital; vg1 16:43 Follow up: Response: No adverse reaction; Pain is decreased vg1 Disposition: 18:46 Co-signature as Attending Physician, Jason Wilson MD I agree with the assessment and kdr plan of care. Disposition: 11/01/20 16:14 Discharged to Home. Impression: Upper abdominal pain, unspecified. - Condition is Stable. - Discharge Instructions: Biliary Colic, Adult, Abdominal Pain, Adult, [id number]. - Prescriptions for Bentyl 20 mg Oral Tablet - take 1 tablet by ORAL route every 6 hours As needed; 20 tablet. Zofran 4 mg Oral Tablet - take 1 tablet by ORAL route every 6 hours As needed; 20 tablet. - Medication Reconciliation Form, Thank You Letter, Antibiotic Education, Prescription Opioid Use form. - Follow up: [place] Dotson MD; When: 2 - 3 days; Reason: Recheck today's complaints, Continuance of care, Re-evaluation by your physician. Follow up: Emergency Department; When: As needed; Reason: Worsening of condition. Signatures: Dispatcher [employer] [facility] Roma Quintero, JESUS-C JESUS-Jason Landeros MD MD kdr Acob, Cheryl RN RN ca1 Poonam Portillo RN RN vg1 Corrections: (The following items were deleted from the chart) 16:43 16:14 11/01/2020 16:14 Discharged to Home. Impression: Upper abdominal pain, vg1 unspecified. Condition is Stable. Forms are Medication Reconciliation Form, Thank You Letter, Antibiotic Education, Prescription Opioid Use. Follow up: London Dotson; When: 2 - 3 days; Reason: Recheck today's complaints, Continuance of care, Re-evaluation by your physician. Follow up: Emergency Department; When: As needed; Reason: Worsening of condition. kb
--- NOTE | 2020-11-01 16:15 | ER ---
Nurse's Notes [facility] Name: Mariza Alicea Age: 50 yrs Sex: Female : 1970 Arrival Date: 11/01/2020 Time: 12:14 Bed 24 Private MD: Diagnosis: Upper abdominal pain, unspecified Presentation: 11/01 12:51 Chief complaint: Patient states: RUQ radiates to the back x 1 week. Today, N/V. Denies ca1 diarrhea. Coronavirus screen: Client denies travel out of the [place] in the last 14 days. nausea, vomiting. Client presents with at least one sign or symptom that may indicate coronavirus-19. Standard/surgical mask placed on the client. Provider contacted for isolation considerations. Ebola Screen: Patient negative for fever greater than or equal to 101.5 degrees Fahrenheit, and additional compatible Ebola Virus Disease symptoms Patient denies exposure to infectious person. Patient denies travel to an Ebola-affected area in the 21 days before illness onset. No symptoms or risks identified at this time. Initial Sepsis Screen: Does the patient meet any 2 criteria? No. Patient's initial sepsis screen is negative. Does the patient have a suspected source of infection? No. Patient's initial sepsis screen is negative. Risk Assessment: Do you want to hurt yourself or someone else? Patient reports no desire to harm self or others. Onset of symptoms was November 01, 2020. 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 - Social history:: Smoking status: Patient reports the use of cigarette tobacco products, smokes one pack cigarettes per day. Screenin:44 Abuse screen: Denies threats or abuse. Nutritional screening: No deficits noted. vg1 Tuberculosis screening: No symptoms or risk factors identified. Fall Risk No fall in past 12 months (0 pts). No secondary diagnosis (0 pts). IV access (20 points). Ambulatory Aid- None/Bed Rest/Nurse Assist (0 pts). Gait- Normal/Bed Rest/Wheelchair (0 pts) Mental Status- Oriented to own ability (0 pts). Total Weiss Fall Scale indicates No Risk (0-24 pts). Assessment: 12:55 Reassessment: [phone], in the car waiting. please call. ca1 14:41 General: Appears in no apparent distress. comfortable, Behavior is calm, cooperative. vg1 Pain: Complains of pain in RUQ, Back, and Right shoulder Pain currently is 4 out of 10 on a pain scale. Pain began about a week ago. Neuro: Level of Consciousness is awake, alert, obeys commands, Oriented to person, place, time, situation. Cardiovascular: Patient's skin is warm and dry. Respiratory: Airway is patent Respiratory effort is even, unlabored. GI: Bowel sounds present X 4 quads. Abd is soft and non tender in left upper quadrant, right lower quadrant and left lower quadrant Abdomen is tender to palpation in right upper quadrant Reports nausea, vomiting, loose stools. : No signs and/or symptoms were reported regarding the genitourinary system. EENT: No signs and/or symptoms were reported regarding the EENT system. Derm: Skin is intact, is healthy with good turgor. Musculoskeletal: Circulation, motion, and sensation intact. 16:41 Reassessment: Patient appears in no apparent distress at this time. No changes from vg1 previously documented assessment. Patient and/or family updated on plan of care and expected duration. Pain level reassessed. Patient is alert, oriented x 3, equal unlabored respirations, skin warm/dry/pink. Vital Signs: 12:51 BP 145 / 88; Pulse 88; Resp 16 S; Temp 97.1(TE); Pulse Ox 98% on R/A; Weight 122.47 kg ca1 (R); Height 5 ft. 10 in. (177.80 cm) (R); Pain 4/10; 14:44 BP 146 / 78; Pulse 70; Resp 16; Pulse Ox 98% on R/A; vg1 16:00 BP 140 / 84; Pulse 75; Resp 16; Pulse Ox 98% on R/A; vg1 12:51 Body Mass Index 38.74 (122.47 kg, 177.80 cm) ca1 ED Course: 12:14 Patient arrived in ED. as 12:53 Triage completed. ca1 12:53 Arm band placed on right wrist. ca1 14:23 [facility] kb 14:23 Jason Wilson MD is Attending Physician. kb 14:26 Poonam Portillo, RN is Primary Nurse. vg1 14:45 Patient has correct armband on for positive identification. Bed in low position. Call vg1 light in reach. Side rails up X 1. 14:48 Missed attempt(s): 20 gauge in left antecubital area. dh4 15:08 Inserted saline lock: 20 gauge in right antecubital area, using aseptic technique. vg1 ,using aseptic technique. Completed by YAHIR Osei. 15:24 US Abdomen Limited In Process Unspecified. EDMS 15:[address] via wheelchair. vg1 16:02 CT Abd/Pelvis - IV Contrast Only In Process Unspecified. EDMS 16:14 London Dotson MD is Referral Physician. kb 16:42 No provider procedures requiring assistance completed. IV discontinued, intact, vg1 bleeding controlled, No redness/swelling at site. Pressure dressing applied. Administered Medications: 15:16 Drug: NS 0.9% 1000 ml Route: IV; Rate: 1000 ml; Site: right antecubital; vg1 16:30 Follow up: IV Status: Completed infusion vg1 15:16 Drug: Zofran (Ondansetron) 4 mg Route: IVP; Site: right antecubital; vg1 16:43 Follow up: Response: No adverse reaction; Nausea is decreased vg1 15:16 Drug: morphine 4 mg {Note: rass 0.} Route: IVP; Site: right antecubital; vg1 16:43 Follow up: Response: No adverse reaction; Pain is decreased vg1 Outcome: 16:14 Discharge ordered by . kb 16:42 Discharged to home ambulatory. vg1 16:42 Condition: stable 16:42 Discharge instructions given to patient, Instructed on discharge instructions, follow up and referral plans. medication usage, Demonstrated understanding of instructions, follow-up care, medications, Prescriptions given X 2. 16:43 Patient left the ED. vg1 Signatures: Dispatcher [employer] EDMT Roma Quintero FNP-C FNP-Martine Martinez as Pat Pritchard RN RN ca1 Pancho Gaston 4 Poonam Portillo RN RN vg1 Corrections: (The following items were deleted from the chart) 12:55 12:51 Acuity: JOAN 4 ca1 ca1
[2020-11-01 17:35] VITALS: TEMP 97.1; O2SAT 98
[2020-11-01 17:38] VITALS: BP 140/84
== END 2020-11-01 16:43 | disposition home or self-care (01) ==
LOC: ER 12:13
DX: R10.11 Right upper quadrant pain (principal); I10 Essential (primary) hypertension; F17.210 Nicotine dependence, cigarettes, uncomplicated; Z88.5 Allergy status to narcotic agent
CPT/HCPCS: 96361; 85025; 80048; 36415; 80076; 83690; 74177; 76705; 96375; 96374; 99284; Q9967; J7030; J2405

== ENCOUNTER 2021-03-19 06:03 | Day surgery (SDC) | payer OTHER ==
[2021-03-12 12:09] LABS: Basophils % 0.9 % (0-1.3); Hematocrit 44.2 % (36.0-45.0); Lymphocytes % 29.6 % (15.3-44.8); MPV 8.1 fL (7.6-11.3); RBC Red Blood Cell Count 4.72 M/uL (3.86-4.86)
[2021-03-12 12:12] LABS: Protime INR 1.06
--- NOTE | 2021-03-12 12:19 | RAD REPORT ---
EXAM DESCRIPTION: RAD - Chest Pa And Lat (2 Views) - 03/12/2021 11:20 am CLINICAL HISTORY: preop Chest pain. COMPARISON: Chest Single View dated 06/30/2020; CHEST SINGLE VIEW dated 08/01/2010; CHEST SINGLE VIE W dated 12/30/2007 FINDINGS: The lungs are clear. The heart is normal in size. No displaced fractures. IMPRESSION: No acute or concerning finding suspected.
--- NOTE | 2021-03-13 07:31 | EKG ---
Test Date: 2021-03-12 Test Time: 10:10:23 Custodial Services Manager: KELVIN MEASUREMENT RESULTS: Intervals: Rate: 75 NJ: 168 QRSD: 88 QT: 384 QTc: 428 Lee: P: 34 NJ: 168 QRS: 37 T: 53 INTERPRETIVE STATEMENTS: Normal sinus rhythm Normal ECG No previous ECG available for comparison Electronically Signed On 03-13-21 07:28:31 CDT by Refugio Downs
[2021-03-19] MEDS ORDERED: Ringers Lactate 1,000 ML IV ONE (07:05)
[2021-03-19] MEDS ORDERED: CEFAZOLIN/SWI 1gm 1 GM/10 ML SYR ONE (07:05)
[2021-03-19] MEDS ORDERED: BUPIVACAINE 0.25% PF 30 ML VIAL ONE (07:38)
[2021-03-19] MEDS ORDERED: FENTANYL CITR 100 MCG/2 ML ONE (07:46)
[2021-03-19] MEDS ORDERED: LIDOCAINE 2% MPF 5 ML VIAL ONE (07:47)
[2021-03-19] MEDS ORDERED: ONDANSETRON 4 MG/2 ML VIAL ONE (07:47)
[2021-03-19] MEDS ORDERED: MIDAZOLAM HCL 2 MG/2 ML INJ ONE (07:47)
[2021-03-19] MEDS ORDERED: propofoL 200 MG/20 ML VIAL IV ONE (07:47)
[2021-03-19] MEDS ORDERED: KETOROLAC 30 MG/ML INJ ONE (08:13)
--- NOTE | 2021-03-19 08:43 | P.BOP ---
Preoperative diagnosis: right carpal tunnel syndrome Postoperative diagnosis: same Primary procedure: right open carpal tunnel release Protective Officer: NONE,NONE Estimated blood loss: 2 cc Specimen: none Findings: see dictation Anesthesia: General Complications: None Implants: none Fluids & blood products: per anesthesia record: TT: 20 mins @ 250 mmHg Transferred to: Recovery Room Condition: Good
[2021-03-19] MEDS ORDERED: HYDROCODONE/APAP 5/325 MG TAB ONE (09:46)
--- NOTE | 2021-03-19 10:20 | OP ---
Date of Procedure: 03/19/2021 Surgeon: Conrad Castle MD Preoperative Diagnosis: Right carpal tunnel syndrome. Postoperative Diagnosis: Right carpal tunnel syndrome. Procedure Performed: Right open carpal tunnel release. Anesthesia: General LMA. Fluids: Per Anesthesia record. Estimated Blood Loss: 2 cc. Implants: None. Complications: None. Tourniquet Time: 26 minutes at 250 mmHg. Indication For Procedure: Mariza is a 50-year-old female, who presented to clinic with signs, sympto ms, and EMG findings consistent with carpal tunnel syndrome. The patient failed conservative treatme nt measures. I discussed with the patient at length risks and benefits associated with operative and nonoperative treatment. She expressed understanding and elected to proceed with operative treatment . Description Of Procedure: After informed consent was obtained, the patient was identified in the pre operative holding area. The right upper extremity was marked. The patient was then brought back to the operating room, transferred to the operating table in a supine fashion and placed under general L MA anesthesia. The right upper extremity was then prepped and draped in usual sterile fashion. A ti me-out was initiated. The correct patient and procedure were confirmed and identified. The patient did receive her preoperative prophylactic antibiotics. The right upper extremity was then exsanguina jocelyn. The tourniquet was inflated to 250 mmHg. Approximately 3 cm longitudinal incision was made jus t ulnar to the thenar crease. Dissection was then taken down the palmar fascia. A River elevator wa s placed just deep to the palmar fascia to protect the median nerve at all times. A 15 blade was the n used to release the palmar fascia as well as transverse carpal ligament with a River elevator prote cting the nerve at all times. Blunt-tip Metzenbaum were then used to release any remaining fascial b ands surrounding the transverse carpal ligament with complete release of the carpal tunnel noted. Th e wounds were then irrigated thoroughly with normal saline and skin was approximated using a 5-0 Prol singh. Sterile dressings were applied. Tourniquet was let down. The patient was awakened and transfe rred to PACU in stable condition. Postoperative Plan: The patient will follow up in clinic in 1 week for wound check and suture remova l. The patient may begin working on range of motion exercises. CV/MODL Voice ID: [id number] Report ID: [id number]
[2021-03-19 15:02] VITALS: BP 116/67; TEMP 97.5; O2SAT 99
== END 2021-03-19 09:50 | disposition home or self-care (01) ==
LOC: OR 06:03
PROVIDERS: ATTEND Orthopaedic Surgery Sports Medicine
PROC: 01N50ZZ Release Median Nerve, Open Approach (ICD-10-PCS; principal; 2021-03-19 07:30)
DX: G56.01 Carpal tunnel syndrome, right upper limb (principal); Z20.822 Contact with and (suspected) exposure to COVID-19
CPT/HCPCS: 36415; 71046; 80048; 85025; 85610; 85730; 93005; J0690; J2250; J2405; J2704; J3010; J7120; U0002